=== PATIENT | female | born 1970 | race Caucasian/White ===

== ENCOUNTER 2021-09-16 21:15 | Observation (INO) | payer OTHER, MEDICAID, SELFPAY ==
[2021-09-16 21:27] VITALS: PULSE 83; O2SAT 100
[2021-09-16 21:29] VITALS: BP 181/80; PULSE 80; RESP 20; TEMP 36.4; O2SAT 100; BMI 28.0
[2021-09-16 21:30] VITALS: BP 181/91
--- NOTE | 2021-09-16 21:49 | DI.RAD.S_ITS ---
PROCEDURE: XR CHEST 2V INDICATIONS: upper abdominal pain TECHNIQUE: 2 views of the chest were acquired. COMPARISON: [facility], CT, CT ABDOMEN PELVIS W CON, 09/16/2021, 22:25. FINDINGS: Surgical changes and devices: None. Lungs and pleura: There are linear opacities in the lung bases consistent with atelectasis. No pleural effusions or pneumothorax. Mediastinum: Mediastinal contours are normal. Heart size is normal. Bones and chest wall: No suspicious bony abnormalities. Soft tissues appear unremarkable. IMPRESSION: 1. Bibasilar atelectasis in the lung bases without definite acute cardiopulmonary disease. Dictated by: Benny Ortiz M.D. on 09/16/2021 at 23:18 Approved by: Benny Ortiz M.D. on 09/16/2021 at 23:19
--- NOTE | 2021-09-16 21:49 | DI.CT.S_ITS ---
PROCEDURE: CT ABDOMEN PELVIS W CON INDICATIONS: acute upper abdominal pain TECHNIQUE: After the administration of IV contrast, axial sections were acquired from the lung bases to the pubic symphysis. Coronal and sagittal reformats were performed. For radiation dose reduction, the following was used: automated exposure control, adjustment of mA and/or kV according to patient size. COMPARISON: None. FINDINGS: Image quality: Excellent. Lung bases: There is linear scarring and atelectasis in the lung bases. Heart: Heart is normal in size. There is a small hiatal hernia. ABDOMEN: Liver: No mass lesion. Gallbladder: Surgically absent. Biliary ducts: No biliary ductal dilatation. Pancreas: Unremarkable. Spleen: Normal in size. Adrenal Glands: No adrenal nodules. Kidneys and Ureters: No hydronephrosis. Stomach and Bowel: There are postsurgical changes demonstrated in the stomach consistent with prior gastric bypass with gastrojejunostomy. Multiple distended loops of small bowel are demonstrated, measuring up to 3.6 cm with associated air-fluid levels and segments of small bowel fecalization. These include distention of the afferent loop extending distal to the jejunal-jejunal anastomosis. There is also segmental distention of a small bowel loop more distal to the anastomosis. No single transition point is identified but there is twisting of the small bowel mesentery in the left upper quadrant with a few transition points. The constellation of findings are suggestive of a moderate small-bowel obstruction likely secondary to an internal hernia. The distal small bowel is nondistended. No evidence of appendicitis. The colon is normal in caliber. There is colonic diverticulosis. Peritoneum: No abnormal intraperitoneal fluid. No free air. Ventral Wall: No hernia. Abdominal Nodes: No retroperitoneal or mesenteric adenopathy by size criteria. Vessels: Aorta and inferior vena cava are normal in size. PELVIS: Pelvic Organs: Unremarkable. Bladder: Unremarkable. Pelvic Nodes: No enlarged lymph nodes. Miscellaneous: No inguinal hernias are seen. Bones: Visualized osseous structures demonstrate no suspicious focal lesions. IMPRESSION: 1. Findings consistent with a moderate small-bowel obstruction likely secondary to an internal hernia in the left upper quadrant. Findings discussed with Dr. Hussein on 09/16/2021 at 11:30 p.m.. Dictated by: Benny Ortiz M.D. on 09/16/2021 at 23:20 Approved by: Benny Ortiz M.D. on 09/16/2021 at 23:36
[2021-09-16] MEDS: ONDANSETRON 4 MG/2 ML INJ IV (21:54)
[2021-09-16] MEDS: HYDROMORPHONE 1 MG INJ IV (21:54)
[2021-09-16] MEDS: SODIUM CHLORIDE 0.9% 1,000 ML 1000 ML IV (21:54)
[2021-09-16 22:05] LABS: Add Manual Diff / Slide Review NO; Basophils Absolute Auto 0 /uL (0-100); Basophils Percent Auto 0.8 % (0-2); Eosinophils Absolute Auto 100 /uL (0-450); Eosinophils Percent Auto 1.4 % (2-4); Hematocrit 39.4 % (36-46); Hemoglobin 12.7 g/dL (12.0-16.0); Lymphocytes Absolute Auto 1800 /uL (1100-4500); Lymphocytes Percent Auto 29.8 % (25-40); Mean Corpuscular HGB Conc 32.3 % (30-36); Mean Corpuscular Hemoglobin 24.3 PG (26-34); Mean Corpuscular Volume 75.2 fL (80-100); Monocytes Absolute Auto 400 /uL (0-900); Monocytes Percent Auto 6.4 % (3-14); Neutrophils Absolute Auto 3800 /uL (1500-7000); Neutrophils Percent Auto 61.6 % (50-75); Platelet Count 331 X10^3/uL (150-400); Red Blood Cell Count 5.23 X10^6/uL (4.0-5.2); Red Cell Distribution Width 15.3 % (11.6-14.8); White Blood Cell Count 6.1 X10^3/uL (4.5-11.0)
[2021-09-16 22:10] LABS: Alanine Aminotransferase 21 IU/L (<35); Albumin 4.9 g/dL (3.5-5.0); Albumin Globulin Ratio 1.4 (1.0-2.8); Alkaline Phosphatase 102 U/L (38-126); Aspartate Aminotransferase 32 IU/L (14-36); BUN Creatinine Ratio 21.7 (6-22); Bilirubin Total 0.3 mg/dL (0.2-1.3); Blood Urea Nitrogen 15 mg/dL (7-17); Calcium 9.7 mg/dL (8.4-10.2); Carbon Dioxide 25 mmol/L (22-32); Chloride 105 mmol/L (98-107); Estimated Glomerular Filt Rate > 60 mL/min (>60); Globulin 3.5 g/dL (1.7-4.1); Glucose 164 mg/dL (70-100); HEMOLYSIS < 15 (0-50); Magnesium 2.1 mg/dL (1.6-2.3); Potassium 4.1 mmol/L (3.4-5.1); Sodium 142 mmol/L (137-145); Total Protein 8.4 g/dL (6.3-8.2)
--- NOTE | 2021-09-16 22:23 | PC.NURSE ---
Pt reports she had pain relief initially from the dilaudid, but now the pain is coming back and she isn't able to lay still.
[2021-09-16] MEDS: HYDROMORPHONE 0.5 MG INJ IV (22:25)
[2021-09-16 22:30] LABS: Lipase 4102 U/L (23-300)
[2021-09-16 22:52] VITALS: BP 124/60; PULSE 70; O2SAT 97
[2021-09-16 23:00] VITALS: PULSE 64; O2SAT 96
[2021-09-16 23:18] LABS: COVID19 -Nasal RAPID Negative (Negative)
--- NOTE | 2021-09-16 23:32 | ED_ITS ---
HPI - General Adult General Chief complaint: Abdominal Pain Stated complaint: severe stomach pain Time Seen by Provider: 09/16/21 21:47 Source: patient Mode of arrival: Ambulatory History of Present Illness HPI narrative: 51-year-old woman moving to [place] from [facility] with the long history of GI issues. She has had 7 stomach surgeries for reflux related issues and hiatal hernia. She has had a cholecystectomy that had a complication including some type of stomach leak above the diaphragm that required thoracic surgery in [facility]. She has had continued mid abdominal/thoracic pain that radiates through to her back for the last 6 months and is scheduled for upper endoscopy at the end of September. She has been doing quite a bit of physical activity with moving and this afternoon began having acute severe unrelenting abdominal pain worse than she has experienced previously. She feels nauseated however is unable to vomit after her hiatal hernia surgeries. She does not have any fever describes no diarrhea or constipation. She has not recently been ill with fever, cough, chest pain, palpitations. Review of Systems Review of Systems Narrative: Remainder of complete review of systems is otherwise unremarkable except for that included in the HPI. Patient History Medical History (Updated 09/16/21 @ 23:54 by Haydee Hussein MD) Hiatal hernia Surgical History (Updated 09/16/21 @ 23:35 by Haydee Hussein MD) History of cholecystectomy Social History Smoking Status: Never smoker Smoking Status: Never smoker alcohol intake frequency: 0-2 drinks per day Substance Use Type: does not use Exam Initial Vital Signs Initial Vital Signs: Vital Signs Pulse Rate 83 09/16/21 21:27 Pulse Oximetry 100 09/16/21 21:27 General: Severe acute abdominal pain. Able to give a complete and coherent history. Well-nourished well-developed HEENT: Moist mucous membranes, normal sclera with reactive pupils, Neck: supple Respiratory: Lungs are clear to auscultation, no wheezing no rales no rhonchi. Full and symmetrical air movement Cardiac: Regular rate and rhythm no murmurs no bruits Abdomen: Distended, significant tenderness in the upper quadrants, mild tenderness in the lower quadrants, hypoactive bowel tones and no rebound or guarding. Skin: Warm and dry, no rashes Neurologic: Grossly neurologically intact with no obvious asymmetries or abnormalities Extremities: No trauma, well perfused Psych: Cooperative, appropriate insight and affect Course Orders Ordered: ED Orders 09/16/21 21:35 Complete Blood Count AUTO DIFF Stat Comprehensive Metabolic Panel Stat Lipase Stat Magnesium Stat 09/16/21 21:49 CT abdomen pelvis w con Stat XR chest 2V Stat 09/16/21 22:55 COVID19 -Nasal RAPID/Pre-Proc Stat Hydromorphone HCl (Hydromorphone 0.5 Mg Inj) 0.5 mg IV Q15MIN PRN PRN Reason: Pain, Last Admin: 09/16/21 22:25 Dose: 0.5 mg Documented By: MYCHAL Sodium Chloride (Normal Saline 0.9%) 1,000 mls @ 125 mls/hr IV CONT ANSHU Ondansetron HCl (Ondansetron 4 Mg/2 Ml Inj) 4 mg IV Q4HR PRN PRN Reason: Nausea And Vomiting Discontinued Medications Hydromorphone HCl (Hydromorphone 1 Mg Inj) 1 mg IV NOW ONE Stop: 09/16/21 21:48 Last Admin: 09/16/21 21:54 Dose: 1 mg Documented By: WILBERT Sodium Chloride (Normal Saline 0.9%) 1,000 mls @ 1,000 mls/hr IV BOLUS ONE Stop: 09/16/21 22:46 Last Admin: 09/16/21 21:54 Dose: 1,000 mls/hr Documented By: WILBERT Ondansetron HCl (Ondansetron 4 Mg/2 Ml Inj) 4 mg IV NOW ONE Stop: 09/16/21 21:48 Last Admin: 09/16/21 21:54 Dose: 4 mg Documented By: WILBERT Vital Signs Vital signs: Vital Signs - 8 hr 09/16/21 21:29 09/16/21 21:27 09/16/21 21:30 Temperature 97.5 F L Pulse Rate 80 83 Respiratory Rate 20 Blood Pressure 181/80 H 181/91 H Pulse Oximetry 100 100 Oxygen Delivery Method Room Air 09/16/21 22:52 09/16/21 22:52 09/16/21 23:00 Temperature Pulse Rate 70 64 Respiratory Rate Blood Pressure 124/60 Pulse Oximetry 97 96 Oxygen Delivery Method Medical Decision Making Lab Data Result diagrams: 09/16/21 21:35 09/16/21 21:35 Labs: Lab Results 09/16/21 09/16/21 09/16/21 Range/Units 21:35 21:35 22:55 WBC 6.1 (4.5-11.0) X10^3/uL RBC 5.23 H (4.0-5.2) X10^6/uL Hgb 12.7 (12.0-16.0) g/dL Hct 39.4 (36-46) % MCV 75.2 L (80-100) fL MCH 24.3 L (26-34) PG MCHC 32.3 (30-36) % RDW 15.3 H (11.6-14.8) % Plt Count 331 (150-400) X10^3/uL Neut % (Auto) 61.6 (50-75) % Lymph % (Auto) 29.8 (25-40) % [place] % (Auto) 6.4 (3-14) % Eos % (Auto) 1.4 L (2-4) % Baso % (Auto) 0.8 (0-2) % Neut # (Auto) 3800 (2815-0718) /uL Lymph # (Auto) 1800 (3615-9677) /uL [place] # (Auto) 400 (0-900) /uL Eos # (Auto) 100 (0-450) /uL Baso # (Auto) 0 (0-100) /uL Sodium 142 (137-145) mmol/L Potassium 4.1 (3.4-5.1) mmol/L Chloride 105 (98-107) mmol/L Carbon Dioxide 25 (22-32) mmol/L BUN 15 (7-17) mg/dL Creatinine 0.69 (0.52-1.04) mg/dL Estimated GFR > 60 (>60) mL/min BUN/Creatinine Ratio 21.7 (6-22) Glucose 164 H (70-100) mg/dL Calcium 9.7 (8.4-10.2) mg/dL Magnesium 2.1 (1.6-2.3) mg/dL Total Bilirubin 0.3 (0.2-1.3) mg/dL AST 32 (14-36) IU/L ALT 21 (<35) IU/L Alkaline Phosphatase 102 (38-126) U/L Total Protein 8.4 H (6.3-8.2) g/dL Albumin 4.9 (3.5-5.0) g/dL Globulin 3.5 (1.7-4.1) g/dL Albumin/Globulin Ratio 1.4 (1.0-2.8) Lipase 4102 H (23-300) U/L SARS-CoV-2 (PCR) Negative (Negative) Urine Dip Bedside Urine Glucose Negative Bedside Urine Bilirubin - Negative Bedside Urine Ketone - Negative Urine Specific [place] 1.015 Bedside Urine Occult Blood - Negative Bedside Urine pH 6.0 Bedside Urine Protein - Negative Bedside Urine Urobilinogen - Negative Bedside Urine Nitrite - Negative Bedside Urine Leukocytes - Negative Esterase Point of care testing: Urine Dip Bedside Urine Glucose Negative Bedside Urine Bilirubin - Negative Bedside Urine Ketone - Negative Urine Specific [place] 1.015 Bedside Urine Occult Blood - Negative Bedside Urine pH 6.0 Bedside Urine Protein - Negative Bedside Urine Urobilinogen - Negative Bedside Urine Nitrite - Negative Bedside Urine Leukocytes - Negative Esterase Imaging Data Chest x-ray: Radiologist's Impression: FINDINGS:? ? Surgical changes and devices:? None.? ? Lungs and pleura:? There are linear opacities in the lung bases consistent with atelectasis.? No pleural effusions or pneumothorax.? ? Mediastinum:? Mediastinal contours are normal.? Heart size is normal.? ? Bones and chest wall:? No suspicious bony abnormalities.? Soft tissues appear unremarkable.? ? IMPRESSION:? ? 1. Bibasilar atelectasis in the lung bases without definite acute cardiopulmonary disease. ? ? Dictated by: Benny Ortiz M.D. on 09/16/2021 at 23:18 ? ? CT scan - abdomen/pelvis: Radiologist's Impression: FINDINGS:? Image quality:? Excellent.? ? Lung bases:? There is linear scarring and atelectasis in the lung bases.? ? Heart:? Heart is normal in size.? There is a small hiatal hernia. ? ? ABDOMEN: Liver:? No mass lesion. Gallbladder:? Surgically absent. Biliary ducts:? No biliary ductal dilatation.? ? Pancreas:? Unremarkable.? ? Spleen:? Normal in size.? ? Adrenal Glands:? No adrenal nodules.? ? Kidneys and Ureters:? No hydronephrosis.? ? ? Stomach and Bowel:? There are postsurgical changes demonstrated in the stomach consistent with prior gastric bypass with gastrojejunostomy.? Multiple distended loops of small bowel are demonstrated, measuring up to 3.6 cm with associated air-fluid levels and segments of small bowel fecalization.? These include distention of the afferent loop extending distal to the jejunal-jejunal anastomosis.? There is also segmental distention of a small bowel loop more distal to the anastomosis.? No single transition point is identified but there is twisting of the small bowel mesentery in the left upper quadrant with a few transition points.? The constellation of findings are suggestive of a moderate small-bowel obstruction likely secondary to an internal hernia.? The distal sm all bowel is nondistended.? No evidence of appendicitis.? The colon is normal in caliber.? There is colonic diverticulosis. Peritoneum:? No abnormal intraperitoneal fluid.? No free air.? ? Ventral Wall: ? No hernia.? Abdominal Nodes:? No retroperitoneal or mesenteric adenopathy by size criteria.? Vessels:? Aorta and inferior vena cava are normal in size.? ? PELVIS: Pelvic Organs:? Unremarkable.? ? Bladder:? Unremarkable.? ? Pelvic Nodes: No enlarged lymph nodes.? Miscellaneous: No inguinal hernias are seen. ? ? ? Bones:? Visualized osseous structures demonstrate no suspicious focal lesions. ? IMPRESSION:? ? 1. Findings consistent with a moderate small-bowel obstruction likely secondary to an internal hernia in the left upper quadrant. ? Findings discussed with Dr. Hussein on 09/16/2021 at 11:30 p.m..? ? ? Dictated by: Benny Ortiz M.D. on 09/16/2021 at 23:20 ? ? [facility] Narrative Medical decision making narrative: 51-year-old woman with a complicated abdominal surgical history with gastric bypass, diaphragmatic hernias, complications from cholecystectomy with continued upper abdominal pain for the last 6 months after most recent surgery in March. Comes in with acute onset severe upper abdominal pain with distention. The CT scan suggests acute small-bowel obstruction with findings consistent with an internal hernia. Care is reviewed with Dr. Purdy, general surgeon. Patient will be admitted to his service with anticipation of surgical intervention tomorrow. At this point she is hemodynamically stable and pain is controlled. Plan is reviewed with patient, questions are answered and she will be admitted to the floor. Discharge Plan Departure Patient Disposition: Admitted As Inpatient Clinical Impression: Small bowel obstruction, Obstructed internal hernia
[2021-09-17 00:07] VITALS: BMI 28.0
[2021-09-17] MEDS: SODIUM CHLORIDE 0.9% 1,000 ML 125 ML IV ×2 (00:32→09:22)
[2021-09-17] MEDS: PRAMIPEXOLE 1 MG TABLET PO (00:32)
[2021-09-17] MEDS: ONDANSETRON 4 MG/2 ML INJ IV ×2 (01:16→07:41)
[2021-09-17 01:24] VITALS: BP 134/82; PULSE 68; RESP 18; TEMP 36.4; O2SAT 98
[2021-09-17 07:53] VITALS: BP 139/71; PULSE 69; RESP 16; TEMP 36.8; O2SAT 100
--- NOTE | 2021-09-17 09:16 | CM.DANOTE ---
DCP: Case received, EMR reviewed and met with patient. Spouse was also at bedside. Introduced self and role. Was able to obtain information regarding patient's baseline activity status prior to admission. DCP assessment completed with information currently available. Patient is a 51 year old female who admitted early this morning to the care of the hospitalist team. PCP: Provider in [place], no longer in practice. Payer: confirmed: [facility]. Patient came to the hospital via private vehicle secondary to increased abdominal pain. According to notes, patient has history of past abdominal surgeries, including a cholecystectomy, and had required thoracic surgery in March. Patient holds current diagnosis of acute small bowel obstruction with findings consistent with internal hernia. Patient will be having surgery consult. Met with patient in her room, spouse was in room as well. 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 Patient is independent at her baseline, and they have children. P: DCP to continue to follow. Patient will be having surgery consult today. Renetta Dillon RN/Photographer Scientific Discharge Planning/Care Management CM Discharge Assessment Start: 09/17/21 09:15 Freq: Status: Active Protocol: Document 09/17/21 09:15 (Rec: 09/17/21 09:15 [id number]) Discharge Planning Assessment Assigned Supervisor [employer] Renetta Dillon RN/Photographer Scientific Advance Directives? No History Provided By Patient,Medical Record Household Members spouse Type of transporation used prior to Drives own vehicle admit Independent with ADL's Yes Is patient alert and oriented? Yes Caregiver for Another No Barriers to Discharge No Discharge Plan Home Transportation Arrangement Spouse Whiteboard Updated in Patient Room with Yes name and ext. # of Supervisor [employer] Review Status In Process Next Review Type Continued Stay Review
[2021-09-17 11:26] VITALS: BP 117/74; PULSE 58; RESP 16; TEMP 36; O2SAT 100
--- NOTE | 2021-09-17 14:26 | PM.HP.1 ---
History of Present Illness History of Present Illness Date Patient Seen: 09/17/21 Time Patient Seen: 14:26 Chief complaint: severe stomach pain Narrative: 51-year-old woman with an extensive past surgical history involving Arnie fundoplication, hiatal hernia repair, sleeve gastrectomy and gastric bypass surgery who presents with several hours of severe upper abdominal pain. She has no prior history of bowel obstructions. A CT scan was performed overnight which showed dilated loops of bowel without a clear transition point. The CT scan was suggestive of a small-bowel obstruction. Shortly after arriving to the floor she felt relief. A Gastrografin challenge was administered this morning with quick transit of contrast to the rectum. She has been able to tolerate some clear liquids although she does not much of an appetite. She has been passing gas. Patient History Medical History (Updated 09/16/21 @ 23:54 by Haydee Hussein MD) Hiatal hernia Surgical History (Updated 09/16/21 @ 23:35 by Haydee Hussein MD) History of cholecystectomy Family & Social History Social History: household members spouse Safety & Behavioral: Feels Safe in Current Yes Environment Tobacco & Substance use: Smoking Status Never smoker alcohol intake frequency 0-2 drinks per day Substance Use Type does not use Meds Home Medications and Allergies Home Medications Medication Instructions Recorded Confirmed Type fluoxetine 40 mg capsule 40 mg PO DAILY 09/17/21 09/17/21 History hydrochlorothiazide 25 mg tablet 25 mg PO DAILY 09/17/21 09/17/21 History omeprazole 40 mg capsule,delayed 1 mg PO DAILY 09/17/21 09/17/21 History release pramipexole 0.5 mg tablet 1 mg PO DAILY 09/17/21 09/17/21 History Allergies Allergy/AdvReac Type Severity Reaction Status Date / Time No Known Drug Allergies Allergy Verified 09/17/21 00:30 Exam Vital Signs (past 8 hours): - 09/17/21 07:53 09/17/21 11:26 Temperature 98.3 F 96.8 F L Pulse Rate 69 58 L Respiratory Rate 16 16 Blood Pressure 139/71 117/74 Pulse Oximetry 100 100 Oxygen Delivery Method Room Air Narrative Exam Narrative: No acute distress Abdomen is soft, nontender Objective Labs Result Diagrams: 09/16/21 21:35 09/16/21 21:35 Labs: Laboratory Results - last 24 hr 09/16/21 09/16/21 09/16/21 21:35 21:35 22:55 WBC 6.1 RBC 5.23 H Hgb 12.7 Hct 39.4 MCV 75.2 L MCH 24.3 L MCHC 32.3 RDW 15.3 H Plt Count 331 Neut % (Auto) 61.6 Lymph % (Auto) 29.8 [place] % (Auto) 6.4 Eos % (Auto) 1.4 L Baso % (Auto) 0.8 Neut # (Auto) 3800 Lymph # (Auto) 1800 [place] # (Auto) 400 Eos # (Auto) 100 Baso # (Auto) 0 Sodium 142 Potassium 4.1 Chloride 105 Carbon Dioxide 25 BUN 15 Creatinine 0.69 Estimated GFR > 60 BUN/Creatinine Ratio 21.7 Glucose 164 H Calcium 9.7 Magnesium 2.1 Total Bilirubin 0.3 AST 32 ALT 21 Alkaline Phosphatase 102 Total Protein 8.4 H Albumin 4.9 Globulin 3.5 Albumin/Globulin Ratio 1.4 Lipase 4102 H SARS-CoV-2 (PCR) Negative Assessment & Plan Assessment and plan (1) Small bowel obstruction: Status: Acute Plan If she did in fact have a small-bowel obstruction it has now resolved. I suspect more likely she had an air bubble in her upper GI tract causing the brief episode of severe pain. Okay to advance diet to regular and if she tolerates well she can go home tonight. Time Spent With Patient Critical Care time: I spent a total of [] minutes of critical care time on this patient's care today; this time is exclusive of procedural time.
[2021-09-17] MEDS: ACETAMINOPHEN 325 MG TABLET 650 MG PO (15:12)
--- NOTE | 2021-09-17 16:22 | PC.NURSE ---
patient had some jeremy menjivar for late lunch. she tolerated general diet. no n/v. passing gas. dc instructions given. IV removed
== END 2021-09-17 16:28 | disposition home or self-care (01) ==
LOC: ED 23:54 → AC 09-17 14:29
PROVIDERS: Admitting Provider Surgery; Emergency Provider Emergency Medicine; Referring Provider Surgery; Visit Provider Surgery
DX: R10.9 Unspecified abdominal pain (principal); Z98.84 Bariatric surgery status
CPT/HCPCS: 36415; 71046; 74177; 80053; 81003; 83690; 83735; 85025; 87635; 96361; 96374; 96375; 96376; 99219; 99284; C9803; G0378; J1170; J2405

== ENCOUNTER 2021-11-15 21:20 | Emergency (ER) | payer OTHER, MEDICAID, SELFPAY ==
[2021-11-15 21:51] VITALS: BP 135/72; PULSE 79; RESP 22; TEMP 37; O2SAT 99; BMI 28.0
--- NOTE | 2021-11-15 21:59 | DI.RAD.S_ITS ---
PROCEDURE: XR ACUTE ABDOMEN SERIES INDICATIONS: abd pain worsening after fall TECHNIQUE: One view chest and two views of the abdomen were acquired. COMPARISON: [facility], CT, CT ABDOMEN PELVIS W CON, 09/16/2021, 22:25. [facility], CR, XR CHEST 2V, 09/16/2021, 22:26. FINDINGS: Surgical changes and devices: Surgical clips are redemonstrated within the bilateral upper abdomen and right hemipelvis. Chest: Lungs are clear. Heart size is normal. Mild blunting of the bilateral costophrenic angles appears similar to the prior study consistent with pleural thickening. No definite pleural effusions. No pneumoperitoneum. Abdomen: Bowel gas pattern is normal. No suspicious calcifications. Bones: No suspicious bony lesions. IMPRESSION: 1. No acute intra-abdominal radiographic abnormality. Dictated by: Benny Ortiz M.D. on 11/15/2021 at 23:36 Approved by: Benny Ortiz M.D. on 11/15/2021 at 23:38
[2021-11-15 22:22] LABS: Add Manual Diff / Slide Review NO; Basophils Absolute Auto 100 /uL (0-100); Basophils Percent Auto 0.9 % (0-2); Eosinophils Absolute Auto 100 /uL (0-450); Eosinophils Percent Auto 1.1 % (2-4); Hematocrit 33.4 % (36-46); Hemoglobin 10.9 g/dL (12.0-16.0); Lymphocytes Absolute Auto 1500 /uL (1100-4500); Lymphocytes Percent Auto 23.7 % (25-40); Mean Corpuscular HGB Conc 32.7 % (30-36); Mean Corpuscular Hemoglobin 23.9 PG (26-34); Monocytes Absolute Auto 400 /uL (0-900); Monocytes Percent Auto 7.1 % (3-14); Neutrophils Absolute Auto 4200 /uL (1500-7000); Neutrophils Percent Auto 67.2 % (50-75); Platelet Count 363 X10^3/uL (150-400); Red Blood Cell Count 4.58 X10^6/uL (4.0-5.2); Red Cell Distribution Width 15.4 % (11.6-14.8); White Blood Cell Count 6.3 X10^3/uL (4.5-11.0)
[2021-11-15 22:34] LABS: Alanine Aminotransferase 14 IU/L (<35); Albumin 4.1 g/dL (3.5-5.0); Albumin Globulin Ratio 1.3 (1.0-2.8); Alkaline Phosphatase 99 U/L (38-126); Aspartate Aminotransferase 21 IU/L (14-36); BUN Creatinine Ratio 29.2 (6-22); Bilirubin Total 0.2 mg/dL (0.2-1.3); Blood Urea Nitrogen 19 mg/dL (7-17); Calcium 8.4 mg/dL (8.4-10.2); Carbon Dioxide 24 mmol/L (22-32); Chloride 109 mmol/L (98-107); Estimated Glomerular Filt Rate > 60 mL/min (>60); Globulin 3.2 g/dL (1.7-4.1); Glucose 83 mg/dL (70-100); HEMOLYSIS < 15 (0-50); Lipase 41 U/L (23-300); Potassium 3.6 mmol/L (3.4-5.1); Sodium 140 mmol/L (137-145); Total Protein 7.3 g/dL (6.3-8.2)
--- NOTE | 2021-11-16 00:08 | ED_ITS ---
HPI - Abdominal Pain General Chief Complaint: Abdominal Pain Stated Complaint: 2 falls s/p surgery, lt abd pain Time Seen by Provider: 11/16/21 00:17 Source: patient Mode of arrival: Ambulatory History of Present Illness HPI narrative: 51-year-old female nonsmoker with history of extensive abdominal surgeries presents with a chief complaint of abdominal pain for the past 2 weeks or so. She is had nausea but no vomiting and generalized abdominal pain that she describes as not severe but she is very concerned that something must be going on. She had been seen here a few months ago with a chief complaint of severe abdominal pain and was admitted for small-bowel obstruction but had resolved prior to requiring any surgical intervention. She is had multiple abdominal surgeries including Arnie fundoplication and is scheduled for what she describes as another surgical intervention for an internal hernia in a few weeks. She states that about 2 weeks ago she was working in the [facility] [employer] when she tripped and fell onto a garbage can with sufficient force to snap a rake that she had been using. Since then she is had the abdominal pain as described above without obvious provocation or palliation nor any radiation. She is had no change in bowel habits nor fever or chills. Related Data Home Medications Medication Instructions Recorded Confirmed fluoxetine 40 mg capsule 40 mg PO DAILY 09/17/21 09/17/21 hydrochlorothiazide 25 mg tablet 25 mg PO DAILY 09/17/21 09/17/21 omeprazole 40 mg capsule,delayed 1 mg PO DAILY 09/17/21 09/17/21 release pramipexole 0.5 mg tablet 1 mg PO DAILY 09/17/21 09/17/21 Allergies Allergy/AdvReac Type Severity Reaction Status Date / Time No Known Drug Allergies Allergy Verified 09/17/21 00:30 Review of Systems Review of Systems Narrative: GENERAL: Denies chills, fatigue, malaise, fever, sweats. HEENT: Denies sinus pain, ear pain, sore throat, difficulty swallowing, dizziness. RESPIRATORY: Denies dyspnea, cough, wheezing, hemoptysis, sputum. CARDIOVASCULAR: Denies chest pain, palpitations, orthopnea, edema, GASTROINTESTINAL: See HPI : Denies dysuria, frequency, incontinence, hematuria, urinary retention. MUSCULOSKELETAL: denies weakness, joint pain, or bony pain SKIN: Denies rash, skin lesions, or other NEUROLOGIC: Denies weakness, headache, numbness, change in speech, confusion, seizures, incoordination. PSYCHIATRIC: No concerning psychosocial issues. 12 point review of systems is negative except for those stated above Patient History Medical History Hiatal hernia Surgical History History of cholecystectomy Social History household members: spouse Smoking Status: Never smoker Smoking Status: Never smoker alcohol intake frequency: 0-2 drinks per day Substance Use Type: does not use Exam Narrative Exam Narrative: GENERAL: [51] year old patient appears stated age. Well-developed patient, in mild distress. HEAD: Atraumatic. Normocephalic. EYES: Pupils equal round and reactive. Extraocular motions intact. No scleral icterus. No injection or drainage. ENT: Nose without bleeding, purulent drainage. Throat without erythema, tons illar hypertrophy or exudate. Airway patent. NECK: Trachea midline. Non tender CARDIOVASCULAR: Regular rate and rhythm without murmurs, gallops, or rubs. RESPIRATORY: Clear to auscultation. Breath sounds equal bilaterally. No wheezes, rales, or rhonchi. GASTROINTESTINAL: Abdomen soft, minimal left sided abdominal pain with minimal areas of dark purple bruising, multiple scars from prior surgeries noted, nondistended. Bowel sounds present in all 4 quadrants EXTREMITIES: No edema or joint tenderness. BACK: Nontender without deformity or crepitance. No flank tenderness. NEURO: AOx3. SKIN: No rash or erythema of visible areas Initial Vital Signs Initial Vital Signs: Vital Signs Temperature 98.6 F 11/15/21 21:51 Pulse Rate 79 11/15/21 21:51 Respiratory Rate 22 11/15/21 21:51 Blood Pressure 135/72 11/15/21 21:51 Pulse Oximetry 99 11/15/21 21:51 Oxygen Delivery Method 11/15/21 21:51 Course Orders Ordered: ED Orders 11/15/21 21:59 XR acute abdomen series Stat 11/15/21 22:06 Complete Blood Count AUTO DIFF Stat Comprehensive Metabolic Panel Stat Lipase Stat 11/16/21 00:16 CT abdomen pelvis w con Stat Discontinued Medications Acetaminophen (Acetaminophen 325 Mg Tablet) 975 mg PO NOW ONE Stop: 11/16/21 00:42 Last Admin: 11/16/21 00:46 Dose: 975 mg Documented By: MYCHAL Lidocaine (Lidocaine Patch 1 Each Adh..Patch) 1 each TOP NOW ONE Stop: 11/16/21 00:41 Last Admin: 11/16/21 00:46 Dose: 1 each Documented By: MYCHAL Vital Signs Vital signs: Vital Signs - 8 hr 11/15/21 21:51 Temperature 98.6 F Pulse Rate 79 Respiratory Rate 22 Blood Pressure 135/72 Pulse Oximetry 99 Oxygen Delivery Method Room Air MDM - Abdominal Pain Lab Data Result diagrams: 11/15/21 22:06 11/15/21 22:06 Labs: Lab Results 11/15/21 11/15/21 Range/Units 22:06 22:06 WBC 6.3 (4.5-11.0) X10^3/uL RBC 4.58 (4.0-5.2) X10^6/uL Hgb 10.9 L (12.0-16.0) g/dL Hct 33.4 L (36-46) % MCV 73.0 L (80-100) fL MCH 23.9 L (26-34) PG MCHC 32.7 (30-36) % RDW 15.4 H (11.6-14.8) % Plt Count 363 (150-400) X10^3/uL Neut % (Auto) 67.2 (50-75) % Lymph % (Auto) 23.7 L (25-40) % Childress % (Auto) 7.1 (3-14) % Eos % (Auto) 1.1 L (2-4) % Baso % (Auto) 0.9 (0-2) % Neut # (Auto) 4200 (9034-2662) /uL Lymph # (Auto) 1500 (0292-8489) /uL Childress # (Auto) 400 (0-900) /uL Eos # (Auto) 100 (0-450) /uL Baso # (Auto) 100 (0-100) /uL Sodium 140 (137-145) mmol/L Potassium 3.6 (3.4-5.1) mmol/L Chloride 109 H (98-107) mmol/L Carbon Dioxide 24 (22-32) mmol/L BUN 19 H (7-17) mg/dL Creatinine 0.65 (0.52-1.04) mg/dL Estimated GFR > 60 (>60) mL/min BUN/Creatinine Ratio 29.2 H (6-22) Glucose 83 (70-100) mg/dL Calcium 8.4 (8.4-10.2) mg/dL Total Bilirubin 0.2 (0.2-1.3) mg/dL AST 21 (14-36) IU/L ALT 14 (<35) IU/L Alkaline Phosphatase 99 (38-126) U/L Total Protein 7.3 (6.3-8.2) g/dL Albumin 4.1 (3.5-5.0) g/dL Globulin 3.2 (1.7-4.1) g/dL Albumin/Globulin Ratio 1.3 (1.0-2.8) Lipase 41 (23-300) U/L Imaging Data Abdominal x-ray: Radiologist's Impression: [address] [address] XRay Report Signed Patient: Erica Zhang MR#: [id number] : 1970 Acct:[id number] Age/Sex: 51 / F Date of Service: 11/15/21 Loc: ED Accession Number: [id number] ?? Procedure: XR acute abdomen series Ordering Provider: Lincoln Billings D.O. PROCEDURE:? XR ACUTE ABDOMEN SERIES ? INDICATIONS:? abd pain worsening after fall ? TECHNIQUE:? One view chest and two views of the abdomen were acquired.? ? COMPARISON:? [facility], CT, CT ABDOMEN PELVIS W CON, 09/16/2021, 22:25.? [facility], CR, XR CHEST 2V, 09/16/2021, 22:26. ? FINDINGS:? ? Surgical changes and devices:? Surgical clips are redemonstrated within the bilateral upper abdomen and right hemipelvis. ? Chest:? Lungs are clear.? Heart size is normal.? Mild blunting of the bilateral costophrenic angles appears similar to the prior study consistent with pleural thickening.? No definite pleural effusions.? No pneumoperitoneum.? ? Abdomen:? Bowel gas pattern is normal.? No suspicious calcifications.? ? Bones:? No suspicious bony lesions.? ? IMPRESSION:? ? 1. No acute intra-abdominal radiographic abnormality.? ? Dictated by: Benny Ortiz M.D. on 11/15/2021 at 23:36 ? ? Approved by: Benny Ortiz M.D. on 11/15/2021 at 23:38 ? CT scan - abdomen/pelvis: Radiologist's Impression: [address] [address] [address] Scan Report Signed Patient: Erica Zhang MR#: [id number] : 1970 Acct:[id number] Age/Sex: 51 / F Date of Service: 11/16/21 Loc: ED Accession Number: [id number] ?? Procedure: CT abdomen pelvis w con Ordering Provider: Lincoln Billings D.O. PROCEDURE:? CT ABDOMEN PELVIS W CON ? INDICATIONS:? abdominal pain, two falls, multiple surgeries ? TECHNIQUE:? After the administration of IV contrast, axial sections were acquired from the lung bases to the pubic symphysis.? Coronal and sagittal reformats were performed.? For radiation dose reduction, the following was used:? automated exposure control, adjustment of mA and/or kV according to patient size. ? COMPARISON:? [facility], CT, CT ABDOMEN PELVIS W CON, 09/16/2021, 22:25. ? FINDINGS:? Image quality:? Excellent.? ? Lung bases:? There is atelectasis and scarring in the lung bases.? ? Heart:? Heart is normal in size.? There is a small hiatal hernia ? ? ABDOMEN: Liver:? No mass lesion. Gallbladder:? Within normal limits without calcified gallstones.? ? Biliary ducts:? No biliary ductal dilatation.? ? Pancreas:? Unremarkable.? ? Spleen:? The spleen is enlarged, measuring up to 14.6 cm. Adrenal Glands:? No adrenal nodules.? ? Kidneys and Ureters:? No hydronephrosis.? ? ? Stomach and Bowel:? Stomach, small bowel loops, and colon are normal in caliber and wall thickness.? Postsurgical changes are redemonstrated status post gastric bypass.? The appendix is not discretely visualized and likely surgically absent. Peritoneum:? No abnormal intraperitoneal fluid.? No free air.? ? Ventral Wall: ? No hernia.? Abdominal Nodes:? No retroperitoneal or mesenteric adenopathy by size criteria.? Vessels:? Aorta and inferior vena cava are normal in size.? ? PELVIS: Pelvic Organs:? Unremarkable.? ? Bladder:? Unremarkable.? ? Pelvic Nodes: No enlarged lymph nodes.? Miscellaneous: No inguinal hernias are seen. ? ? ? Bones:? Visualized osseous structures demonstrate no suspicious focal lesions. ? IMPRESSION:? ? 1. No definite acute intra-abdominal abnormality.? Specifically, no evidence of bowel obstruction. ? ? Dictated by: Benny Ortiz M.D. on 11/16/2021 at 0:55 ? ? Approved by: Benny Ortiz M.D. on 11/16/2021 at 1:06? MDM Narrative Medical decision making narrative: Multiple etiologies for patient's symptoms considered include, but not limited to: [Bowel obstruction versus kidney stone versus diverticulitis versus other Patient's symptoms improved over duration of stay with above-stated therapies. History, physical exam, labs, imaging, and response to therapies have been reassuring. Findings and discharge diagnosis discussed with patient/family followed by verbalization of understanding Return precautions discussed with patient/family whom verbalize understanding. Pain has been well controlled and patient is tolerating oral hydration. Discharge Plan Departure Patient Disposition: Home Clinical Impression: Abdominal pain, Abdominal wall contusion Instructions: DI for Abdominal Pain-Adult Activity Restrictions/Additional Instructions: *You have been diagnosed with [abdominal pain and abdominal wall contusion. As we discussed your history and physical exam are very reassuring as are labs and imaging. There is no evidence of any significant intra-abdominal abnormality such as bowel obstruction, problem with prior surgeries, bleeding or other] *What to do: *Please continue to take your regular medications as directed. [ ] New medication prescriptions sent to your pharmacy: [ ] [ ] New medication written as a paper prescription [x ] No new medications given *Please follow up with your primary care provider in 2-3 days, call for an appointment. Let them know you were seen in the Emergency Department and that we ask that you be seen in follow up. We will electronically transmit a record of today's note if your PCP is in our system *If you do not have a primary care provider please contact the [facility] Resource line at [phone]. They will ask some questions about your medical history and help get you set up with a doctor in the community. *Return to Emergency Department if you should have any new, worsening or concerning symptoms, such as [fever greater than 101 F, shaking chills, worsening pain, persistent vomiting or other bothersome symptoms] Prescriptions: No Action fluoxetine 40 mg capsule 40 mg PO DAILY Label Comments: take 1 capsule by mouth once daily omeprazole 40 mg capsule,delayed release(DR/EC) 1 mg PO DAILY Label Comments: take 1 capsule by mouth EVERY MORNING BEFORE BREAKFAST take 1 cap... (REFER TO PRESCRIPTION NOTES). pramipexole 0.5 mg tablet 1 mg PO DAILY Label Comments: Take 1 tablet by mouth nightly. hydrochlorothiazide 25 mg tablet 25 mg PO DAILY Label Comments: take 1 tablet by mouth once daily Referrals: Jose Devries MD [Primary Care Provider] -
--- NOTE | 2021-11-16 00:16 | DI.CT.S_ITS ---
PROCEDURE: CT ABDOMEN PELVIS W CON INDICATIONS: abdominal pain, two falls, multiple surgeries TECHNIQUE: After the administration of IV contrast, axial sections were acquired from the lung bases to the pubic symphysis. Coronal and sagittal reformats were performed. For radiation dose reduction, the following was used: automated exposure control, adjustment of mA and/or kV according to patient size. COMPARISON: [facility], CT, CT ABDOMEN PELVIS W CON, 09/16/2021, 22:25. FINDINGS: Image quality: Excellent. Lung bases: There is atelectasis and scarring in the lung bases. Heart: Heart is normal in size. There is a small hiatal hernia ABDOMEN: Liver: No mass lesion. Gallbladder: Within normal limits without calcified gallstones. Biliary ducts: No biliary ductal dilatation. Pancreas: Unremarkable. Spleen: The spleen is enlarged, measuring up to 14.6 cm. Adrenal Glands: No adrenal nodules. Kidneys and Ureters: No hydronephrosis. Stomach and Bowel: Stomach, small bowel loops, and colon are normal in caliber and wall thickness. Postsurgical changes are redemonstrated status post gastric bypass. The appendix is not discretely visualized and likely surgically absent. Peritoneum: No abnormal intraperitoneal fluid. No free air. Ventral Wall: No hernia. Abdominal Nodes: No retroperitoneal or mesenteric adenopathy by size criteria. Vessels: Aorta and inferior vena cava are normal in size. PELVIS: Pelvic Organs: Unremarkable. Bladder: Unremarkable. Pelvic Nodes: No enlarged lymph nodes. Miscellaneous: No inguinal hernias are seen. Bones: Visualized osseous structures demonstrate no suspicious focal lesions. IMPRESSION: 1. No definite acute intra-abdominal abnormality. Specifically, no evidence of bowel obstruction. Dictated by: Benny Ortiz M.D. on 11/16/2021 at 0:55 Approved by: Benny Ortiz M.D. on 11/16/2021 at 1:06
[2021-11-16] MEDS: LIDOCAINE PATCH 1 EACH ADH..PATCH TOP (00:46)
[2021-11-16] MEDS: ACETAMINOPHEN 325 MG TABLET 975 MG PO (00:46)
[2021-11-16 01:46] VITALS: BP 135/78; PULSE 90; RESP 18; O2SAT 98
== END 2021-11-16 01:47 | disposition home or self-care (01) ==
PROVIDERS: Emergency Provider Emergency Medicine; PCP Family Medicine
DX: S30.1XXA Contusion of abdominal wall, initial encounter (principal); W01.198A Fall on same level from slipping, tripping and stumbling with subsequent striking against other object, initial encounter; Y92.007 Garden or yard of unspecified non-institutional (private) residence as the place of occurrence of the external cause; R10.9 Unspecified abdominal pain
CPT/HCPCS: 74022; 74177; 80053; 83690; 85025; 99283; Q9967

== ENCOUNTER 2022-01-13 19:28 | Emergency (ER) | payer OTHER, MEDICAID, SELFPAY ==
[2022-01-13 19:41] VITALS: BP 117/59; PULSE 78; RESP 18; TEMP 35.9; O2SAT 97
--- NOTE | 2022-01-13 21:07 | ED.NAVMDI ---
HPI - Nausea/Vomiting/Diarrhea General Chief complaint: Nausea/Vomiting/Diarrhea Stated complaint: Gastro surgeon thinks poss C diff Time Seen by Provider: 01/13/22 20:59 Source: patient Mode of arrival: Ambulatory History of Present Illness HPI Narrative: Patient here for 10 lb weight loss since November 22 this year. Has had 20-30 bouts watery diarrhea a day. Has had dry heaving as well. Patient has seen her surgeon at [place]. Had exploratory laparoscopic surgery on November 22 for possible hernia, there was no hernia. Since then has not felt well. Had barium swallow test and CT scan abdomen pelvis yesterday in [place]. We are waiting for the results of those reports. Her surgeon sent her here for evaluation of C diff. Has not been on any antibiotics. Has not had any EGD or colonoscopy in this past month. No foreign travel no sick contacts. Related Data Home Medications Medication Instructions Recorded Confirmed fluoxetine 40 mg capsule 40 mg PO DAILY 09/17/21 09/17/21 hydrochlorothiazide 25 mg tablet 25 mg PO DAILY 09/17/21 09/17/21 omeprazole 40 mg capsule,delayed 1 mg PO DAILY 09/17/21 09/17/21 release pramipexole 0.5 mg tablet 1 mg PO DAILY 09/17/21 09/17/21 Previous Rx's Medication Instructions Recorded potassium chloride 20 mEq 20 meq PO DAILY #10 tabs 01/14/22 tablet,extended release Allergies Allergy/AdvReac Type Severity Reaction Status Date / Time No Known Drug Allergies Allergy Verified 09/17/21 00:30 Review of Systems Review of Systems Narrative: GENERAL: Denies chills, fatigue, malaise, fever, sweats., positive for weight loss HEENT: Denies sinus pain, ear pain, sore throat RESPIRATORY: Denies dyspnea, cough CARDIOVASCULAR: Denies chest pain, palpitations GASTROINTESTINAL: Positive diarrhea and nausea, vomiting, abdominal pain, no hematemesis or bloody stools or black stools : Denies dysuria, frequency, hematuria MUSCULOSKELETAL: denies muscle or bony pain SKIN: Denies rash, skin lesions NEUROLOGIC: Denies weakness, numbness ROS Unobtainable: All systems reviewed & are unremarkable except as noted in HPI and below Patient History Medical History Hiatal hernia Surgical History History of cholecystectomy Social History household members: spouse Smoking Status: Never smoker Smoking Status: Never smoker alcohol intake frequency: 0-2 drinks per day Substance Use Type: does not use Exam Narrative Exam Narrative: GENERAL: in no distress, not toxic not dyspneic HEAD: Normocephalic. EYES: Pupils equal round No scleral icterus. ENT: Mucous membranes moist. NECK: Trachea midline. CARDIOVASCULAR: Regular rate and rhythm without murmurs RESPIRATORY: Clear to auscultation. Breath sounds equal bilaterally. No wheezes, rales, or rhonchi. GASTROINTESTINAL: Abdomen soft, non-tender, bowel sounds present, no peritoneal signs, EXTREMITIES: No gross deformities. NEURO: AOx4. SKIN: Warm and dry PSYCH: Not anxious, is cooperative Initial Vital Signs Initial Vital Signs: Vital Signs Temperature 96.7 F L 01/13/22 19:41 Pulse Rate 78 01/13/22 19:41 Respiratory Rate 18 01/13/22 19:41 Blood Pressure 117/59 L 01/13/22 19:41 Pulse Oximetry 97 01/13/22 19:41 Oxygen Delivery Method 01/13/22 19:41 Course Course Course Narrative: No new issues during course of stay Orders Ordered: ED Orders 01/13/22 21:15 CBC Auto Diff [Complete Blood Count AUTO DIFF] Stat CMP [Comprehensive Metabolic Panel] Stat GI Panel (Film Array) Stat 01/14/22 01:31 Potassium Stat Discontinued Medications Sodium Chloride (Normal Saline 0.9%) 1,000 mls @ 1,000 mls/hr IV BOLUS ONE Stop: 01/13/22 22:05 Last Infusion: 01/14/22 00:00 Dose: 0 mls/hr Documented By: Admin: 01/13/22 21:20 Dose: 1,000 mls/hr Documented By: SB POTASSIUM CHLORIDE IN WATER (Potassium Cl 10 Meq/100 Ml Tabitha) 10 meq in 100 mls @ 100 mls/hr IV Q1H ANSHU Stop: 01/13/22 23:59 Last Infusion: 01/14/22 01:25 Dose: 0 mls/hr Documented By: Admin: 01/14/22 00:05 Dose: 75 mls/hr Documented By: Infusion: 01/14/22 00:00 Dose: 0 mls/hr Documented By: Infusion: 01/13/22 22:38 Dose: 50 mls/hr Documented By: Admin: 01/13/22 22:08 Dose: 100 mls/hr Documented By: LAZ Potassium Chloride (Potassium Chloride 20 Meq/15 Ml Udc) 20 meq PO NOW ONE Stop: 01/13/22 21:59 Last Admin: 01/13/22 22:08 Dose: 20 meq Documented By: LAZ Ropinirole HCl (Ropinirole 1 Mg Tablet) 1.5 mg PO NOW ONE Stop: 01/14/22 00:26 Last Admin: 01/14/22 00:38 Dose: 1.5 mg Documented By: LAZ Reevaluation(s) Reevaluation #1: Reviewed results with patient and . This time there reassuring. Potassium replacement being provided. They do desire discharge home. Not toxic at discharge. Patient feeling much better after IV fluids and potassium replacement. Time: 00:46 Vital Signs Vital signs: Vital Signs - 8 hr 01/13/22 22:15 01/13/22 22:30 01/13/22 23:00 Pulse Rate 69 72 66 Respiratory Rate 14 20 14 Blood Pressure 134/73 134/73 121/65 Pulse Oximetry 100 99 98 Oxygen Delivery Method Room Air Room Air Room Air 01/14/22 00:00 01/14/22 01:30 01/14/22 01:00 Pulse Rate 66 70 64 Respiratory Rate 16 16 16 Blood Pressure 118/63 129/69 131/76 Pulse Oximetry 99 100 98 Oxygen Delivery Method Room Air Room Air Room Air MDM - Nausea/Vomiting/Diarrhea Differential Diagnosis Differential diagnosis: Likely traveler's diarrhea, gastroenteritis, clostridium difficile infection, dehydration and other (Diarrhea/functional diarrhea/hypokalemia) Medical Records Medical records narrative: Fax results of upper GI series as well as CT scan from yesterday at [place] sent to us. They are reassuring results. Lab Data Result diagrams: 01/13/22 21:15 01/14/22 01:55 Labs: Lab Results 01/13/22 01/13/22 01/13/22 Range/Units 21:15 21:15 21:15 WBC 5.9 (4.5-11.0) X10^3/uL RBC 5.61 H (4.0-5.2) X10^6/uL Hgb 13.1 (12.0-16.0) g/dL Hct 39.5 (36-46) % MCV 70.4 L (80-100) fL MCH 23.4 L (26-34) PG MCHC 33.2 (30-36) % RDW 15.9 H (11.6-14.8) % Plt Count 298 (150-400) X10^3/uL Neut % (Auto) 61.0 (50-75) % Lymph % (Auto) 26.7 (25-40) % Arthur % (Auto) 11.1 (3-14) % Eos % (Auto) 0.7 L (2-4) % Baso % (Auto) 0.5 (0-2) % Neut # (Auto) 3600 (4542-7901) /uL Lymph # (Auto) 1600 (6986-7703) /uL Arthur # (Auto) 700 (0-900) /uL Eos # (Auto) 0 (0-450) /uL Baso # (Auto) 0 (0-100) /uL Sodium 140 (137-145) mmol/L Potassium 2.3 L* (3.4-5.1) mmol/L Chloride 94 L (98-107) mmol/L Carbon Dioxide 34 H (22-32) mmol/L BUN 21 H (7-17) mg/dL Creatinine 0.70 (0.52-1.04) mg/dL Estimated GFR > 60 (>60) mL/min BUN/Creatinine Ratio 30.0 H (6-22) Glucose 97 (70-100) mg/dL Calcium 9.1 (8.4-10.2) mg/dL Total Bilirubin 0.4 (0.2-1.3) mg/dL AST 31 (14-36) IU/L ALT 35 H (<35) IU/L Alkaline Phosphatase 140 H (38-126) U/L Total Protein 8.5 H (6.3-8.2) g/dL Albumin 4.7 (3.5-5.0) g/dL Globulin 3.8 (1.7-4.1) g/dL Albumin/Globulin Ratio 1.2 (1.0-2.8) Stl C. cayetanensis PCR Not detected (Not Detect) Stool Rotavirus (PCR) Not detected (Not Detect) Stool Adenovirus (PCR) Not detected (Not Detect) Stool Astrovirus (PCR) Not detected (Not Detect) Stool Cryptosporidium PCR Not detected (Not Detect) Stl E.coli Shiga Tox PCR Not detected (Not Detect) St Sh/Enteroin Ecoli PCR Not detected (Not Detect) Stool E coli O157 PCR Not detected (Not Detect) Stl Enterotoxigenic E PCR Not detected (Not Detect) Stool EPEC (PCR) Not detected (Not Detect) Stl E. histolytica PCR Not detected (Not Detect) Stool Giardia Lamblia PCR Not detected (Not Detect) Stool Sapovirus (PCR) Not detected (Not Detect) Stl P. shigelloides PCR Not detected (Not Detect) St Y.enterocolitica PCR Not detected (Not Detect) Stool Vibrio (PCR) Not detected (Not Detect) Stl Vibrio cholerae PCR Not detected (Not Detect) Stl Enteroaggr Ecoli PCR Not detected (Not Detect) Stl Norovirus GI/GII PCR Not detected (Not Detect) Campylobacter (PCR) Not detected (Not Detect) C. difficile Tox (PCR) Not detected (Not Detect) Salmonella (PCR) Not detected (Not Detect) 01/14/22 Range/Units 01:55 WBC (4.5-11.0) X10^3/uL RBC (4.0-5.2) X10^6/uL Hgb (12.0-16.0) g/dL Hct (36-46) % MCV (80-100) fL MCH (26-34) PG MCHC (30-36) % RDW (11.6-14.8) % Plt Count (150-400) X10^3/uL Neut % (Auto) (50-75) % Lymph % (Auto) (25-40) % Arthur % (Auto) (3-14) % Eos % (Auto) (2-4) % Baso % (Auto) (0-2) % Neut # (Auto) (1573-8368) /uL Lymph # (Auto) (3824-1140) /uL Arthur # (Auto) (0-900) /uL Eos # (Auto) (0-450) /uL Baso # (Auto) (0-100) /uL Sodium (137-145) mmol/L Potassium 2.8 L (3.4-5.1) mmol/L Chloride (98-107) mmol/L Carbon Dioxide (22-32) mmol/L BUN (7-17) mg/dL Creatinine (0.52-1.04) mg/dL Estimated GFR (>60) mL/min BUN/Creatinine Ratio (6-22) Glucose (70-100) mg/dL Calcium (8.4-10.2) mg/dL Total Bilirubin (0.2-1.3) mg/dL AST (14-36) IU/L ALT (<35) IU/L Alkaline Phosphatase (38-126) U/L Total Protein (6.3-8.2) g/dL Albumin (3.5-5.0) g/dL Globulin (1.7-4.1) g/dL Albumin/Globulin Ratio (1.0-2.8) Stl C. cayetanensis PCR (Not Detect) Stool Rotavirus (PCR) (Not Detect) Stool Adenovirus (PCR) (Not Detect) Stool Astrovirus (PCR) (Not Detect) Stool Cryptosporidium PCR (Not Detect) Stl E.coli Shiga Tox PCR (Not Detect) St Sh/Enteroin Ecoli PCR (Not Detect) Stool E coli O157 PCR (Not Detect) Stl Enterotoxigenic E PCR (Not Detect) Stool EPEC (PCR) (Not Detect) Stl E. histolytica PCR (Not Detect) Stool Giardia Lamblia PCR (Not Detect) Stool Sapovirus (PCR) (Not Detect) Stl P. shigelloides PCR (Not Detect) St Y.enterocolitica PCR (Not Detect) Stool Vibrio (PCR) (Not Detect) Stl Vibrio cholerae PCR (Not Detect) Stl Enteroaggr Ecoli PCR (Not Detect) Stl Norovirus GI/GII PCR (Not Detect) Campylobacter (PCR) (Not Detect) C. difficile Tox (PCR) (Not Detect) Salmonella (PCR) (Not Detect) MDM Narrative Medical decision making narrative: Appropriate for discharge home. Exam reassuring. Images/results faxed to us from [facility] are reassuring. Patient does have surgeon to follow up with next week. Return precautions reviewed with her and . They desire discharge home. Prescription for potassium provided for hypokalemia. Potassium replacement started here. Potassium did improve. No paresthesia numbness tingling weakness. No palpitations. No EKG indicated this time. Discharge Plan Departure Patient Disposition: Home Clinical Impression: Diarrhea, Acute hypokalemia Instructions: DI for Dehydration -- Adult, DI for Hypokalemia, DI for Diarrhea and Traveler's Diarrhea -- Adult Activity Restrictions/Additional Instructions: See your surgeon next week for re-evaluation. Keep well hydrated. Return if worse if any questions or concerns. Prescription for supplemental potassium has been provided for you. At this time laboratory studies otherwise reassuring. Prescriptions: New potassium chloride 20 mEq tablet extended release 20 meq PO DAILY Qty: 10 0RF No Action fluoxetine 40 mg capsule 40 mg PO DAILY Label Comments: take 1 capsule by mouth once daily omeprazole 40 mg capsule,delayed release(DR/EC) 1 mg PO DAILY Label Comments: take 1 capsule by mouth EVERY MORNING BEFORE BREAKFAST take 1 cap... (REFER TO PRESCRIPTION NOTES). pramipexole 0.5 mg tablet 1 mg PO DAILY Label Comments: Take 1 tablet by mouth nightly. hydrochlorothiazide 25 mg tablet 25 mg PO DAILY Label Comments: take 1 tablet by mouth once daily Referrals: Jose Devries MD [Primary Care Provider] - Visit Report Forms: Patient Portal/API
[2022-01-13] MEDS: SODIUM CHLORIDE 0.9% 1,000 ML 1000 ML IV (21:20)
[2022-01-13 21:35] LABS: Add Manual Diff / Slide Review NO; Basophils Absolute Auto 0 /uL (0-100); Basophils Percent Auto 0.5 % (0-2); Eosinophils Absolute Auto 0 /uL (0-450); Eosinophils Percent Auto 0.7 % (2-4); Hematocrit 39.5 % (36-46); Hemoglobin 13.1 g/dL (12.0-16.0); Lymphocytes Absolute Auto 1600 /uL (1100-4500); Lymphocytes Percent Auto 26.7 % (25-40); Mean Corpuscular HGB Conc 33.2 % (30-36); Mean Corpuscular Hemoglobin 23.4 PG (26-34); Mean Corpuscular Volume 70.4 fL (80-100); Monocytes Absolute Auto 700 /uL (0-900); Monocytes Percent Auto 11.1 % (3-14); Neutrophils Absolute Auto 3600 /uL (1500-7000); Platelet Count 298 X10^3/uL (150-400); Red Blood Cell Count 5.61 X10^6/uL (4.0-5.2); Red Cell Distribution Width 15.9 % (11.6-14.8); White Blood Cell Count 5.9 X10^3/uL (4.5-11.0)
[2022-01-13 21:45] LABS: Alanine Aminotransferase 35 IU/L (<35); Albumin 4.7 g/dL (3.5-5.0); Albumin Globulin Ratio 1.2 (1.0-2.8); Alkaline Phosphatase 140 U/L (38-126); Aspartate Aminotransferase 31 IU/L (14-36); Bilirubin Total 0.4 mg/dL (0.2-1.3); Blood Urea Nitrogen 21 mg/dL (7-17); Calcium 9.1 mg/dL (8.4-10.2); Carbon Dioxide 34 mmol/L (22-32); Chloride 94 mmol/L (98-107); Estimated Glomerular Filt Rate > 60 mL/min (>60); Globulin 3.8 g/dL (1.7-4.1); Glucose 97 mg/dL (70-100); HEMOLYSIS 15 (0-50); Sodium 140 mmol/L (137-145); Total Protein 8.5 g/dL (6.3-8.2)
[2022-01-13 21:54] LABS: Potassium 2.3 mmol/L (3.4-5.1)
[2022-01-13] MEDS: POTASSIUM CHLORIDE IN WATER 10 MEQ/100 ML PIGGYBACK 100 MEQ IV (22:08)
[2022-01-13] MEDS: POTASSIUM CHLORIDE 20 MEQ/15 ML UDC PO (22:08)
[2022-01-13 22:15] VITALS: BP 134/73; PULSE 69; RESP 14; O2SAT 100
[2022-01-13 22:30] VITALS: BP 134/73; PULSE 72; RESP 20; O2SAT 99
--- NOTE | 2022-01-13 22:37 | PC.NURSE ---
RN called to room - c/o burning to the arm from the potassium infusion - slowed to 50ml/hr from 100ml/hr for comfort
--- NOTE | 2022-01-13 22:45 | PC.NURSE ---
Family to bedside
[2022-01-13 23:00] VITALS: BP 121/65; PULSE 66; RESP 14; O2SAT 98
[2022-01-13 23:02] LABS: Adenovirus F 40/41 Not Detected (Not Detect); Astrovirus Not Detected (Not Detect); Campylobacter Not Detected (Not Detect); Clostridium difficile toxin AB Not Detected (Not Detect); Cryptosporidium Not Detected (Not Detect); Cyclospora cayetanensis Not Detected (Not Detect); Entamoeba histolytica Not Detected (Not Detect); Enteroaggregative E.coli Not Detected (Not Detect); Enteropathogenic E.coli Not Detected (Not Detect); Enterotoxigenic E.coli It/st Not Detected (Not Detect); Giardia lamblia Not Detected (Not Detect); Norovirus GI/GII Not Detected (Not Detect); Plesiomonsa shigelloides Not Detected (Not Detect); Rotavirus A Not Detected (Not Detect); Salmonella Not Detected (Not Detect); Sapovirus Not Detected (Not Detect); Shiga-like toxin-prod E.coli Not Detected (Not Detect); Shigella/Enteroinvasive E.coli Not Detected (Not Detect); Vibrio Not Detected (Not Detect); Vibrio cholerae Not Detected (Not Detect); Yersinia enterocolitica Not Detected (Not Detect)
--- NOTE | 2022-01-13 23:45 | PC.NURSE ---
Up to bathroom - steady gait
[2022-01-14] VITALS: BP 118/63; PULSE 66; RESP 16; O2SAT 99
[2022-01-14] MEDS: POTASSIUM CHLORIDE IN WATER 10 MEQ/100 ML PIGGYBACK 75 MEQ IV (00:05)
--- NOTE | 2022-01-14 00:15 | PC.NURSE ---
Resting quietly with family at bedside - no needs voiced - uses bathroom intermittently - alert and oriented - PWD with respirations equal and unlabored bilaterally
--- NOTE | 2022-01-14 00:30 | PC.NURSE ---
Requesting requip for her restless legs - MD to bedside and order received
[2022-01-14] MEDS: ROPINIROLE 1 MG TABLET 1.5 MG PO (00:38)
[2022-01-14 01:00] VITALS: BP 131/76; PULSE 64; RESP 16; O2SAT 98
--- NOTE | 2022-01-14 01:15 | PC.NURSE ---
Resting quietly in NAD - no needs voiced - PWD with respirations equal and unlabored bialterally - family at bedside
[2022-01-14 01:30] VITALS: BP 129/69; PULSE 70; RESP 16; O2SAT 100
--- NOTE | 2022-01-14 02:00 | PC.NURSE ---
No changes in pt status at this time
[2022-01-14 02:08] LABS: Potassium 2.8 mmol/L (3.4-5.1)
[2022-01-14 02:09] LABS: HEMOLYSIS 51 (0-50)
== END 2022-01-14 02:42 | disposition home or self-care (01) ==
PROVIDERS: Emergency Provider Emergency Medicine; PCP Family Medicine
DX: R19.7 Diarrhea, unspecified (principal); E87.6 Hypokalemia
CPT/HCPCS: 36415; 80053; 84132; 85025; 87507; 96365; 96366; 99284

== ENCOUNTER 2022-12-14 20:36 | Emergency (ER) | payer OTHER, MEDICAID, SELFPAY ==
[2022-12-14] VITALS (10 sets, daily range): BP systolic 114–155; BP diastolic 60–83; PULSE 53–78; RESP 18–24; TEMP 36.4; O2SAT 97–99; BMI 29.5
--- NOTE | 2022-12-14 20:51 | DI.RAD.S_ITS ---
PROCEDURE: XR CHEST 2V INDICATIONS: SOB TECHNIQUE: 2 views of the chest were acquired. COMPARISON: [facility], CR, XR CHEST 2V, 09/16/2021, 22:26. FINDINGS: Surgical changes and devices: None. Lungs and pleura: Lungs are clear. No pleural effusions or definite pneumothorax. Mild chronic blunting of the bilateral costophrenic angles appears unchanged and likely represents pleural thickening. Mediastinum: Mediastinal contours are normal. Heart size is normal. Bones and chest wall: No suspicious bony abnormalities. Soft tissues appear unremarkable. IMPRESSION: 1. No definite acute cardiopulmonary disease. Dictated by: Benny Ortiz M.D. on 12/14/2022 at 22:41 Approved by: Benny Ortiz M.D. on 12/14/2022 at 22:43
[2022-12-14 21:08] LABS: Add Manual Diff / Slide Review NO; Basophils Absolute Auto 100 /uL (0-100); Basophils Percent Auto 0.8 % (0-2); Eosinophils Absolute Auto 100 /uL (0-450); Eosinophils Percent Auto 1.3 % (2-4); Hematocrit 41.1 % (36-46); Hemoglobin 14.5 g/dL (12.0-16.0); Lymphocytes Absolute Auto 1900 /uL (1100-4500); Lymphocytes Percent Auto 23.3 % (25-40); Mean Corpuscular HGB Conc 35.4 % (30-36); Mean Corpuscular Hemoglobin 30.7 PG (26-34); Mean Corpuscular Volume 86.9 fL (80-100); Monocytes Absolute Auto 400 /uL (0-900); Monocytes Percent Auto 4.9 % (3-14); Neutrophils Absolute Auto 5600 /uL (1500-7000); Neutrophils Percent Auto 69.7 % (50-75); Platelet Count 263 X10^3/uL (150-400); Red Blood Cell Count 4.73 X10^6/uL (4.0-5.2); Red Cell Distribution Width 13.4 % (11.6-14.8); White Blood Cell Count 8.1 X10^3/uL (4.5-11.0)
[2022-12-14] MEDS: SODIUM CHLORIDE 0.9% 1,000 ML 150 ML IV (21:08)
[2022-12-14 21:10] LABS: D Dimer 370 ng/ml (<500)
[2022-12-14 21:18] LABS: Alanine Aminotransferase 37 IU/L (<35); Albumin 4.6 g/dL (3.5-5.0); Albumin Globulin Ratio 1.3 (1.0-2.8); Alkaline Phosphatase 102 U/L (38-126); Aspartate Aminotransferase 33 IU/L (14-36); BUN Creatinine Ratio 28.1 (6-22); Bilirubin Total 0.6 mg/dL (0.2-1.3); Blood Urea Nitrogen 18 mg/dL (7-17); Calcium 9.8 mg/dL (8.4-10.2); Carbon Dioxide 25 mmol/L (22-32); Chloride 105 mmol/L (98-107); Creatine Kinase 71 U/L (30-135); Estimated Glomerular Filt Rate > 60 mL/min (>60); Globulin 3.5 g/dL (1.7-4.1); Glucose 92 mg/dL (70-100); HEMOLYSIS 29 (0-50); Lipase 44 U/L (23-300); Potassium 3.5 mmol/L (3.4-5.1); Sodium 140 mmol/L (137-145); Total Protein 8.1 g/dL (6.3-8.2)
[2022-12-14 21:26] LABS: NT-proBNP (BNP-Adult 18+) 53 pg/mL (<125)
[2022-12-14 21:29] LABS: Troponin I < 0.012 ng/mL (0.01-0.034)
[2022-12-14 21:34] LABS: Procalcitonin 0.03 ng/mL (<0.5)
--- NOTE | 2022-12-14 21:50 | ED_ITS ---
HPI - SOB/Dyspnea General Chief Complaint: Shortness of Breath/Dyspnea Stated Complaint: states can't breathe Time Seen by Provider: 12/14/22 20:40 Source: patient Mode of arrival: Ambulatory Limitations: no limitations History of Present Illness HPI Narrative: 52-year-old female nonsmoker with extensive history of multiple prior abdominal surgeries presents with a chief complaint of shortness of breath that started this evening soon after eating. There was no clear pattern to her shortness of breath, it was persistent and not necessarily made worse by position or activity. She denies any dizziness, weakness or lightheadedness. She denied any chest pain, cough, fever or chills. She has some mild nausea but denies any vomiting, mild abdominal discomfort and no diarrhea. She denies recent trauma, history of blood clot or lower extremity pain, swelling or redness Related Data Home Medications Medication Instructions Recorded Confirmed fluoxetine 40 mg capsule 40 mg PO DAILY 09/17/21 09/17/21 hydrochlorothiazide 25 mg tablet 25 mg PO DAILY 09/17/21 09/17/21 omeprazole 40 mg capsule,delayed 1 mg PO DAILY 09/17/21 09/17/21 release pramipexole 0.5 mg tablet 1 mg PO DAILY 09/17/21 09/17/21 Previous Rx's Medication Instructions Recorded potassium chloride 20 mEq 20 meq PO DAILY #10 tabs 01/14/22 tablet,extended release Allergies Allergy/AdvReac Type Severity Reaction Status Date / Time No Known Drug Allergies Allergy Verified 09/17/21 00:30 Review of Systems Review of Systems Narrative: GENERAL: Denies chills, fatigue, malaise, fever, sweats. HEENT: Denies sinus pain, ear pain, sore throat, difficulty swallowing, dizziness. RESPIRATORY: See HPI CARDIOVASCULAR: Denies chest pain, palpitations, orthopnea, edema, GASTROINTESTINAL: See HPI : Denies dysuria, frequency, incontinence, hematuria, urinary retention. MUSCULOSKELETAL: denies weakness, joint pain, or bony pain SKIN: Denies rash, skin lesions, or other NEUROLOGIC: Denies weakness, headache, numbness, change in speech, confusion, seizures, incoordination. PSYCHIATRIC: No concerning psychosocial issues. 12 point review of systems is negative except for those stated above Patient History Medical History Hiatal hernia Surgical History History of cholecystectomy Social History household members: spouse Smoking Status: Never smoker Smoking Status: Never smoker alcohol intake frequency: 0-2 drinks per day Substance Use Type: does not use Exam Narrative Exam Narrative: GENERAL: [52] year old patient appears stated age. Well-developed patient, in mild distress. HEAD: Atraumatic. Normocephalic. EYES: Pupils equal round and reactive. Extraocular motions intact. No scleral icterus. No injection or drainage. ENT: Nose without bleeding, purulent drainage. Throat without erythema, tonsillar hypertrophy or exudate. Airway patent. NECK: Trachea midline. Non tender CARDIOVASCULAR: Regular rate and rhythm without murmurs, gallops, or rubs. RESPIRATORY: Clear to auscultation. Breath sounds equal bilaterally. No wheezes, rales, or rhonchi. GASTROINTESTINAL: Abdomen soft, non-tender, nondistended. EXTREMITIES: No edema or joint tenderness. BACK: Nontender without deformity or crepitance. No flank tenderness. NEURO: AOx3. SKIN: No rash or erythema of visible areas Initial Vital Signs Initial Vital Signs: Vital Signs Temperature 97.6 F 12/14/22 20:42 Pulse Rate 78 12/14/22 20:42 Respiratory Rate 18 12/14/22 20:42 Blood Pressure 136/75 12/14/22 20:42 Pulse Oximetry 99 12/14/22 20:42 Oxygen Delivery Method Room Air 12/14/22 20:42 Course Orders Ordered: ED Orders 12/14/22 20:50 Complete Blood Count AUTO DIFF Stat Comprehensive Metabolic Panel Stat D Dimer Stat Lipase Stat NT-proBNP (BNP-Adult 18+) Stat Procalcitonin Stat Troponin & CK Cardiac Panel Stat EKG-12 Lead Stat 12/14/22 20:51 XR chest 2V Stat 12/14/22 23:41 CT chest abd pel w con Stat Sodium Chloride (Normal Saline 0.9%) 1,000 mls @ 150 mls/hr IV CONT ANSHU Last Admin: 12/14/22 21:08 Dose: 150 mls/hr Documented By: NICK Vital Signs Vital signs: Vital Signs - 8 hr 12/14/22 20:42 12/14/22 20:53 12/14/22 20:54 Temperature 97.6 F Pulse Rate 78 74 70 Respiratory Rate 18 20 22 Blood Pressure 136/75 Pulse Oximetry 99 99 98 Oxygen Delivery Method Room Air 12/14/22 20:54 12/14/22 21:00 12/14/22 21:00 Temperature Pulse Rate 70 Respiratory Rate 21 Blood Pressure 139/83 122/72 Pulse Oximetry 98 Oxygen Delivery Method 12/14/22 21:30 12/14/22 21:30 12/14/22 22:00 Temperature Pulse Rate 60 58 L Respiratory Rate 24 21 Blood Pressure 114/60 Pulse Oximetry 98 98 Oxygen Delivery Method 12/14/22 22:06 12/14/22 22:06 12/14/22 22:30 Temperature Pulse Rate 58 L Respiratory Rate 18 Blood Pressure 127/71 138/71 Pulse Oximetry 97 Oxygen Delivery Method 12/14/22 22:30 12/14/22 23:00 12/14/22 23:00 Temperature Pulse Rate 53 L 61 Respiratory Rate Blood Pressure 155/70 H Pulse Oximetry 97 97 Oxygen Delivery Method 12/14/22 23:30 12/14/22 23:30 12/15/22 00:00 Temperature Pulse Rate 53 L 58 L Respiratory Rate 18 Blood Pressure 128/66 Pulse Oximetry 99 96 Oxygen Delivery Method MDM - SOB/Dyspnea Lab Data 12/14/22 20:50 12/14/22 20:50 Labs: Lab Results 12/14/22 12/14/22 12/14/22 Range/Units 20:50 20:50 20:50 WBC 8.1 (4.5-11.0) X10^3/uL RBC 4.73 (4.0-5.2) X10^6/uL Hgb 14.5 (12.0-16.0) g/dL Hct 41.1 (36-46) % MCV 86.9 (80-100) fL MCH 30.7 (26-34) PG MCHC 35.4 (30-36) % RDW 13.4 (11.6-14.8) % Plt Count 263 (150-400) X10^3/uL Neut % (Auto) 69.7 (50-75) % Lymph % (Auto) 23.3 L (25-40) % [place] % (Auto) 4.9 (3-14) % Eos % (Auto) 1.3 L (2-4) % Baso % (Auto) 0.8 (0-2) % Neut # (Auto) 5600 (4217-1173) /uL Lymph # (Auto) 1900 (1212-9740) /uL [place] # (Auto) 400 (0-900) /uL Eos # (Auto) 100 (0-450) /uL Baso # (Auto) 100 (0-100) /uL D-Dimer 370 (<500) ng/ml Sodium 140 (137-145) mmol/L Potassium 3.5 (3.4-5.1) mmol/L Chloride 105 (98-107) mmol/L Carbon Dioxide 25 (22-32) mmol/L BUN 18 H (7-17) mg/dL Creatinine 0.64 (0.52-1.04) mg/dL Estimated GFR > 60 (>60) mL/min BUN/Creatinine Ratio 28.1 H (6-22) Glucose 92 (70-100) mg/dL Calcium 9.8 (8.4-10.2) mg/dL Total Bilirubin 0.6 (0.2-1.3) mg/dL AST 33 (14-36) IU/L ALT 37 H (<35) IU/L Alkaline Phosphatase 102 (38-126) U/L Total Creatine Kinase 71 (30-135) U/L Troponin I < 0.012 (0.01-0.034) ng/mL NT-Pro-B Natriuret Pep (<125) pg/mL Total Protein 8.1 (6.3-8.2) g/dL Albumin 4.6 (3.5-5.0) g/dL Globulin 3.5 (1.7-4.1) g/dL Albumin/Globulin Ratio 1.3 (1.0-2.8) Lipase 44 (23-300) U/L Procalcitonin 0.03 (<0.5) ng/mL 12/14/22 Range/Units 20:50 WBC (4.5-11.0) X10^3/uL RBC (4.0-5.2) X10^6/uL Hgb (12.0-16.0) g/dL Hct (36-46) % MCV (80-100) fL MCH (26-34) PG MCHC (30-36) % RDW (11.6-14.8) % Plt Count (150-400) X10^3/uL Neut % (Auto) (50-75) % Lymph % (Auto) (25-40) % [place] % (Auto) (3-14) % Eos % (Auto) (2-4) % Baso % (Auto) (0-2) % Neut # (Auto) (6474-9822) /uL Lymph # (Auto) (1081-1323) /uL [place] # (Auto) (0-900) /uL Eos # (Auto) (0-450) /uL Baso # (Auto) (0-100) /uL D-Dimer (<500) ng/ml Sodium (137-145) mmol/L Potassium (3.4-5.1) mmol/L Chloride (98-107) mmol/L Carbon Dioxide (22-32) mmol/L BUN (7-17) mg/dL Creatinine (0.52-1.04) mg/dL Estimated GFR (>60) mL/min BUN/Creatinine Ratio (6-22) Glucose (70-100) mg/dL Calcium (8.4-10.2) mg/dL Total Bilirubin (0.2-1.3) mg/dL AST (14-36) IU/L ALT (<35) IU/L Alkaline Phosphatase (38-126) U/L Total Creatine Kinase (30-135) U/L Troponin I (0.01-0.034) ng/mL NT-Pro-B Natriuret Pep 53 (<125) pg/mL Total Protein (6.3-8.2) g/dL Albumin (3.5-5.0) g/dL Globulin (1.7-4.1) g/dL Albumin/Globulin Ratio (1.0-2.8) Lipase (23-300) U/L Procalcitonin (<0.5) ng/mL MDM Narrative Medical decision making narrative: [52] year old patient presents with shortness of breath Multiple etiologies for patient's symptoms considered including, but not limited to: [Pulmonary embolism versus pneumonia versus bowel obstruction versus cardiac ischemia versus other] Prior Charts reviewed in our EMR Primary Historian: patient Labs reviewed and interpreted by myself: No significant abnormalities require specific intervention Imaging reviewed: CT of chest abdomen pelvis without acute findings Patient's symptoms improved over duration of stay with above-stated therapies. Multiple diagnoses considered as noted above. Cardiac ischemia thought unlikely given lack of pain, dizziness or lightheadedness, exertional symptoms, ischemic change on EKG, negative troponin and low heart score. Pulmonary embolism considered but thought unlikely given negative D-dimer, no indication for angiogram. No evidence of pneumonia or fluid overload on imaging. Patient states that she is been having symptoms not unlike this for a month or so which seemed to be brought on by eating and drinking and given her history of bowel obstruction and prior abdominal diagnoses and surgeries it seems likely related to the GI tract, thankfully labs and imaging demonstrate no significant abnormality. She is tolerating orals, symptoms improving with course of the visit. She is given a copy of her imaging on disc, encouraged to follow up closely with her GI and Surgical team Findings and discharge diagnosis discussed with patient/family followed by verbalization of understanding Return precautions discussed with patient/family whom verbalize understanding of diagnosis and plan Discharge Plan Departure Patient Disposition: Home Clinical Impression: Acute dyspnea, Abdominal fullness Activity Restrictions/Additional Instructions: *You have been diagnosed with [shortness of breath. As we discussed your history and physical exam are reassuring as are labs and imaging. There is no evidence of a cardiac abnormality, blood clot, pneumonia or complication of your prior abdominal surgeries such as bowel obstruction.] *What to do: *Please continue to take your regular medications as directed. [ ] New medication prescriptions sent to your pharmacy: [ ] [ ] New medication written as a paper prescription [ ] No new medications given *Please follow up with your primary care provider in 2-3 days, call for an appointment. Let them know you were seen in the Emergency Department and that we ask that you be seen in follow up. We will electronically transmit a record of today's note if your PCP is in our system *If you do not have a primary care provider please contact the [facility] Resource line at [phone]. They will ask some questions about your medical history and help get you set up with a doctor in the community. *Return to Emergency Department if you should have any new, worsening or concerning symptoms, such as [fever greater than 101 F, shaking chills, worsening pain, persistent vomiting or other bothersome symptoms] Prescriptions: No Action fluoxetine 40 mg capsule 40 mg PO DAILY Patient Comments: take 1 capsule by mouth once daily omeprazole 40 mg capsule,delayed release(DR/EC) 1 mg PO DAILY Patient Comments: take 1 capsule by mouth EVERY MORNING BEFORE BREAKFAST take 1 cap... (REFER TO PRESCRIPTION NOTES). pramipexole 0.5 mg tablet 1 mg PO DAILY Patient Comments: Take 1 tablet by mouth nightly. hydrochlorothiazide 25 mg tablet 25 mg PO DAILY Patient Comments: take 1 tablet by mouth once daily potassium chloride 20 mEq tablet extended release 20 meq PO DAILY Qty: 10 0RF Referrals: Jose Devries MD [Primary Care Provider] - Stand Alone Forms: Patient Portal/API
--- NOTE | 2022-12-14 23:41 | DI.CT.S_ITS ---
PROCEDURE: CT CHEST ABD PEL W CON INDICATIONS: chest / abd pain, SOB, hx internal hernias TECHNIQUE: After the administration of intravenous contrast, axial sections acquired from the supraclavicular neck to the pubic symphysis. Coronal and sagittal reformats were performed. For radiation dose reduction, the following was used: automated exposure control, adjustment of mA and/or kV according to patient size. COMPARISON: [facility], CT, CT ABDOMEN PELVIS W CON, 11/16/2021, 0:29. FINDINGS: Image quality: Excellent. CHEST: Lower Neck: No lymphadenopathy by size criteria. Thyroid: Visualized thyroid demonstrates no discrete nodules. Axillae: No lymphadenopathy by size criteria. Chest Wall: Unremarkable. Lungs and Airways: No acute consolidation. There are linear areas of scarring and atelectasis bilaterally. In addition, in the right lower lobe there are medial indistinct opacities within the posterior costophrenic angle. The trachea and central airways are patent. Pleura: No pneumothorax or pleural effusions. Heart: Heart size is normal. No pericardial effusion. Thoracic Vessels: The aorta and pulmonary arteries are normal in size. Mediastinum and Nanda: No lymphadenopathy by size criteria. Esophagus: No wall thickening. No hiatal hernia. ABDOMEN: Liver: No mass lesion. Gallbladder: Within normal limits without calcified gallstones. Biliary ducts: No biliary ductal dilatation. Pancreas: Unremarkable. Spleen: Normal in size. Adrenal Glands: No adrenal nodules. Kidneys and Ureters: No hydronephrosis. Stomach and Bowel: Stomach, small bowel loops, and colon are normal in caliber and wall thickness. Peritoneum: No abnormal intraperitoneal fluid. No free air. Ventral Wall: No hernia. Abdominal Nodes: No retroperitoneal or mesenteric adenopathy by size criteria. Vessels: Aorta and inferior vena cava are normal in size. PELVIS: Pelvic Organs: Uterus is surgically absent. Bladder: Unremarkable. Pelvic Nodes: No enlarged lymph nodes. Miscellaneous: No inguinal hernias are seen. Bones: Visualized upper abdomen demonstrates postsurgical changes in the stomach consistent with prior gastrojejunostomy. Gallbladder surgically absent. IMPRESSION: 1. No definite acute intra-abdominal abnormality. 2. No evidence of an internal hernia. Dictated by: Benny Ortiz M.D. on 12/15/2022 at 0:33 Approved by: Benny Ortiz M.D. on 12/15/2022 at 0:37
[2022-12-15] VITALS: PULSE 58; O2SAT 96
[2022-12-15 01:37] VITALS: BP 122/71; PULSE 56; RESP 16; O2SAT 98
== END 2022-12-15 01:38 | disposition home or self-care (01) ==
PROVIDERS: Emergency Provider Emergency Medicine; PCP Family Medicine
DX: R06.00 Dyspnea, unspecified (principal); R19.8 Other specified symptoms and signs involving the digestive system and abdomen
CPT/HCPCS: 36415; 71046; 71260; 74177; 80053; 82550; 83690; 83880; 84145; 84484; 85025; 85379; 93005; 99284; Q9967

== ENCOUNTER → 2023-05-11 16:46 | Outpatient (CLI) | payer OTHER, MEDICAID, SELFPAY ==
--- NOTE | 2023-05-11 | DI.RAD.S_ITS ---
PROCEDURE: XR CERVICAL SPINE 4V OR 5V INDICATIONS: BACK PAIN TECHNIQUE: 5 views of the cervical spine acquired. COMPARISON: None. FINDINGS: Bones: No fractures or dislocations to the T1 level. There is straightening of the normal cervical lordosis. Trace anterolisthesis of C2 on C3. Moderate disc height loss at C5 to C6 with endplate degenerative changes. Oblique images demonstrate severe right foraminal stenosis at C5-C6. Soft tissues: No prevertebral soft tissue swelling. IMPRESSION: No acute osseous abnormality. Moderate degenerative changes at C5-C6. Severe right C5-C6 foraminal stenosis Approved by: Kaykay Jacobson M.D. on 05/13/2023 at 23:37
== END ==
PROVIDERS: PCP Family Medicine; Referring Provider Nurse Practitioner Family; Visit Provider Nurse Practitioner Family
DX: M47.22 Other spondylosis with radiculopathy, cervical region (principal); M48.02 Spinal stenosis, cervical region; M54.2 Cervicalgia
CPT/HCPCS: 72050

== ENCOUNTER 2023-06-24 23:26 | Emergency (ER) | payer OTHER, MEDICAID, SELFPAY ==
[2023-06-24 23:47] VITALS: BP 147/84; PULSE 93; RESP 17; TEMP 37; O2SAT 100; BMI 32.5
--- NOTE | 2023-06-25 00:06 | ED.NECK ---
HPI - Neck Pain/Injury General Chief Complaint: Neck Pain/Injury Stated Complaint: neck pain Time Seen by Provider: 06/24/23 23:41 Mode of arrival: Ambulatory History of Present Illness HPI Narrative: 53-year-old female presents by private vehicle from home for 6 weeks of progressively worsening neck pain. Patient states that she saw her primary care doctor multiple weeks ago for neck pain and requested physical therapy. Patient states that she went to physical therapy but did not make things better and so she was referred to Orthopedics. Orthopedics has recommended an MRI but due to numerous issues with insurance, this has not been done. Patient states that insurance will not approve and MRI and she is essentially in a loop between her primary, orthopedics, and insurance. She has been taking ibuprofen, tylenol, muscle relaxers, and gabapentin but is still having significant pain. She was told by her doctors that if the pain is too bad she could go to the ED. Related Data Home Medications Medication Instructions Recorded Confirmed fluoxetine 40 mg capsule 40 mg PO DAILY 09/17/21 09/17/21 hydrochlorothiazide 25 mg tablet 25 mg PO DAILY 09/17/21 09/17/21 omeprazole 40 mg capsule,delayed 1 mg PO DAILY 09/17/21 09/17/21 release pramipexole 0.5 mg tablet 1 mg PO DAILY 09/17/21 09/17/21 Previous Rx's Medication Instructions Recorded potassium chloride 20 mEq 20 meq PO DAILY #10 tabs 01/14/22 tablet,extended release dexamethasone 4 mg tablet 4 mg PO BID #6 tabs 06/25/23 hydrocodone 5 mg-acetaminophen 325 1 tab PO Q8H PRN pain #14 tabs 06/25/23 mg tablet Allergies Allergy/AdvReac Type Severity Reaction Status Date / Time droperidol Allergy Verified 06/24/23 23:45 erythromycin base Allergy Verified 06/24/23 23:45 Review of Systems Review of Systems Narrative: See HPI Patient History Medical History Hiatal hernia Surgical History History of cholecystectomy Social History household members: spouse Smoking Status: Never smoker Smoking Status: Never smoker alcohol intake frequency: 0-2 drinks per day Substance Use Type: does not use Exam Initial Vital Signs Initial Vital Signs: Vital Signs Temperature 98.6 F 06/24/23 23:47 Pulse Rate 93 H 06/24/23 23:47 Respiratory Rate 17 06/24/23 23:47 Blood Pressure 147/84 H 06/24/23 23:47 Pulse Oximetry 100 06/24/23 23:47 Oxygen Delivery Method Room Air 06/24/23 23:47 Const: Awake, alert, no acute distress, nontoxic appearing MSK: Generalized tenderness over neck and upper shoulder region, full range of motion Skin: Warm, Dry, intact, no rashes Neuro: AO x3, CN II-XII grossly intact, moves all extremities Course Orders Ordered: ED Orders 06/25/23 00:06 CT cervical spine wo con Stat Discontinued Medications Dexamethasone (Dexamethasone 10 Mg/Ml Vial) 10 mg IV NOW ONE Stop: 06/25/23 00:07 Last Admin: 06/25/23 00:25 Dose: 10 mg Documented By: GARTH Acetaminophen (Ofirmev) 1,000 mg in 100 mls @ 400 mls/hr IV NOW ONE Stop: 06/25/23 00:20 Last Infusion: 06/25/23 00:49 Dose: Infused Documented By: Admin: 06/25/23 00:26 Dose: 400 mls/hr Documented By: GARTH Ketorolac Tromethamine (Ketorolac 30 Mg/Ml Vial) 15 mg IV NOW ONE Stop: 06/25/23 00:07 Last Admin: 06/25/23 00:26 Dose: 15 mg Documented By: GARTH Vital Signs Vital signs: Vital Signs - 8 hr 06/24/23 23:47 06/25/23 01:09 06/25/23 01:14 Temperature 98.6 F 98.1 F Pulse Rate 93 H 79 Respiratory Rate 17 18 Blood Pressure 147/84 H 132/76 Pulse Oximetry 100 98 Oxygen Delivery Method Room Air Room Air MDM - Neck Pain/Injury Differential Diagnosis Differential diagnosis: Likely disc disorder of cervical region, whiplash injury to neck and closed subluxation of cervical spine Imaging Data CT - cervical spine: Radiologist's Impression: PROCEDURE: CT CERVICAL SPINE WO CON INDICATIONS: PROGRESSIVE CERVICAL PAIN AND BILAT PARESTHESIAS TECHNIQUE: Noncontrast 3 mm thick sections acquired from the skull base to the T4 level. Sagittal and coronal reformats were then constructed. For radiation dose reduction, the following was used: automated exposure control, adjustment of mA and/or kV according to patient size. COMPARISON: [facility], CT, CT CHEST ABD PEL W CON, 12/14/2022, 23:48. [facility], CR, XR CERVICAL SPINE 4V OR 5V, 05/11/2023, 17:05. FINDINGS: Image quality: Excellent. Bones: No fractures or dislocations. Trace anterolisthesis at C2-C3 and C3-C4. Multilevel degenerative disc disease, moderate at C5-C6 and mild at other levels. Bilateral facet arthropathy, most pronounced at C2-C3 on the right and C3-C4 on the left. Visualized superior ribs are intact. Soft tissues: Prevertebral soft tissues are normal in thickness. No paravertebral hematomas. No apical pneumothoraces. Partial visualization of enlarged prevascular lymph node measuring 2.0 x 3.8 cm. IMPRESSION: 1. Degenerative disc and facet disease in cervical spine as described. 2. If clinical symptoms persist, consider MRI for further evaluation. Dictated by: Miracle Logan M.D. on 06/25/2023 at 0:33 Approved by: Miracle Logan M.D. on 06/25/2023 at 0:37 MDM Narrative Medical decision making narrative: Patient with persistent neck pain and poor pain control, unable to get advanced imaging due to insurance denies. She is neurologically and vascularly intact. CT imaging ordered for assessment, degenerative disk changes seen. Patient given IV nonnarcotic pain medications and reported improvement in her pain. She was given a copy of her CT results, counseled to continue to try and follow up with Orthopedics and primary care. She was encouraged to use her nonnarcotic pain medications as 1st line, however if her pain is unbearable a short course of [place] was sent to her pharmacy. Discharge Plan Departure Patient Disposition: Home Clinical Impression: Neck pain Instructions: DI for Neck Pain Activity Restrictions/Additional Instructions: Continue to take Tylenol and Motrin as previously prescribed. A short course of steroids has been sent to the pharmacy, this may help your pain. In addition short course of pain medications has been sent to your pharmacy. Be sure to take no more than 4000 mg total of ibuprofen daily. These drugs may cause drowsiness and constipation, do not take them with alcohol or before driving or operating heavy machinery. Take a stool softener daily to prevent constipation. Prescriptions: New dexamethasone 4 mg tablet 4 mg PO BID Qty: 6 0RF hydrocodone-acetaminophen 5-325 mg tablet 1 tab PO Q8H PRN (Reason: pain) Qty: 14 0RF No Action fluoxetine 40 mg capsule 40 mg PO DAILY Patient Comments: take 1 capsule by mouth once daily omeprazole 40 mg capsule,delayed release(DR/EC) 1 mg PO DAILY Patient Comments: take 1 capsule by mouth EVERY MORNING BEFORE BREAKFAST take 1 cap... (REFER TO PRESCRIPTION NOTES). pramipexole 0.5 mg tablet 1 mg PO DAILY Patient Comments: Take 1 tablet by mouth nightly. hydrochlorothiazide 25 mg tablet 25 mg PO DAILY Patient Comments: take 1 tablet by mouth once daily potassium chloride 20 mEq tablet extended release 20 meq PO DAILY Qty: 10 0RF Referrals: Jose Devries MD [Primary Care Provider] - Stand Alone Forms: Patient Portal/API
[2023-06-25] MEDS: DEXAMETHASONE 10 MG/ML VIAL IV (00:25)
[2023-06-25] MEDS: ACETAMINOPHEN IV 1,000 MG/100 ML VIAL 400 MG IV (00:26)
[2023-06-25] MEDS: KETOROLAC 30 MG/ML VIAL 15 MG IV (00:26)
[2023-06-25 01:09] VITALS: BP 132/76; PULSE 79; RESP 18; O2SAT 98
[2023-06-25 01:14] VITALS: TEMP 36.7
== END 2023-06-25 01:16 | disposition home or self-care (01) ==
PROVIDERS: Emergency Provider Emergency Medicine; PCP Family Medicine
DX: M54.2 Cervicalgia (principal)
CPT/HCPCS: 72125; 96365; 96375; 99284; J0136; J1100; J1885

== ENCOUNTER → 2023-07-05 19:45 | Outpatient (CLI) | payer OTHER, MEDICAID, SELFPAY ==
--- NOTE | 2023-07-05 19:47 | DI.MRI.S_ITS ---
PROCEDURE: MR CERVICAL SPINE WO CON INDICATIONS: Radiculopathy, cervical region TECHNIQUE: Noncontrast sagittal T1 spin echo and T2 fast spin echo, sagittal STIR, foraminal oblique sagittal T2 fast spin echo, and axial gradient echo or T2 fast spin echo through the cervical spine. COMPARISON: [facility], CT, CT CERVICAL SPINE WO CON, 06/25/2023, 0:24. [facility], CR, XR CERVICAL SPINE 4V OR 5V, 05/11/2023, 17:05. FINDINGS: Image quality: Excellent. Alignment and Curvature: There is normal bony alignment. Bone Marrow: Cervical straightening is present with trace retrolisthesis of C5 on C6. Spinal Cord: Visualized spinal cord has normal size and signal. No cerebellar tonsillar herniation. Paraspinous Soft Tissues: No paravertebral masses. Prevertebral soft tissues are normal in thickness. Discs: Mild disc desiccation is present C5-6, C6-7. C2-C3: Minimal disc bulge without spinal stenosis. Moderate right foraminal narrowing with prominent asymmetric uncovertebral hypertrophy. C3-C4: Mild disc bulge with minimal thecal sac effacement. Mild left foraminal narrowing. Uncovertebral hypertrophy is present. C4-C5: Mild disc bulge without spinal stenosis. Minimal to mild left foraminal narrowing with uncovertebral hypertrophy. C5-C6: Mild disc bulge with mild spinal stenosis. [id number] bilateral foraminal narrowing, right greater than left with uncovertebral hypertrophy. C6-C7: Mild disc bulge with minimal effacement of the anterior thecal sac. Mild to moderate right foraminal narrowing with uncovertebral hypertrophy. C7-T1: No disc bulge, spinal stenosis or foraminal narrowing. IMPRESSION: Overall, early degenerative changes. Multilevel disc bulges. Multilevel foraminal narrowing overall mild most prominent at C2-3, C5-6 secondary to uncovertebral hypertrophy. Dictated by: Casandra Petersen M.D. on 07/06/2023 at 14:01 Approved by: Casandra Petersen M.D. on 07/06/2023 at 14:03
== END ==
LOC: MRI 19:45
PROVIDERS: PCP Nurse Practitioner Family; Referring Provider Physician Assistant Surgical; Visit Provider Physician Assistant Surgical
DX: M50.11 Cervical disc disorder with radiculopathy, high cervical region (principal); M47.22 Other spondylosis with radiculopathy, cervical region; M48.02 Spinal stenosis, cervical region
CPT/HCPCS: 72141

== ENCOUNTER → 2023-10-17 09:20 | Outpatient (CLI) | payer OTHER, MEDICAID, SELFPAY ==
[2023-10-17 10:11] LABS: Hemoglobin A1C% w Est Avg Glu 5.7 % (4.0-6.0)
[2023-10-17 10:26] LABS: Alanine Aminotransferase 39 IU/L (<35); Albumin 4.4 g/dL (3.5-5.0); Albumin Globulin Ratio 1.6 (1.0-2.8); Alkaline Phosphatase 116 U/L (38-126); Aspartate Aminotransferase 26 IU/L (14-36); BUN Creatinine Ratio 20.8 (6-22); Bilirubin Total 0.6 mg/dL (0.2-1.3); Blood Urea Nitrogen 15 mg/dL (7-17); Calcium 8.9 mg/dL (8.4-10.2); Carbon Dioxide 25 mmol/L (22-32); Chloride 105 mmol/L (98-107); Cholesterol 174 mg/dL (140-199); Estimated Glomerular Filt Rate > 60 mL/min (>60); Globulin 2.7 g/dL (1.7-4.1); Glucose 96 mg/dL (70-100); HDL Cholesterol 72 mg/dL (40-60); HEMOLYSIS < 15 (0-50); LDL Cholesterol Calculated 79 mg/dL (<100); Potassium 3.9 mmol/L (3.4-5.1); Sodium 139 mmol/L (137-145); Total Protein 7.1 g/dL (6.3-8.2); Triglycerides 113 mg/dL (35-150)
[2023-10-17 10:32] LABS: Add Manual Diff / Slide Review NO; Basophils Absolute Auto 0 /uL (0-100); Basophils Percent Auto 0.8 % (0-2); Eosinophils Absolute Auto 0 /uL (0-450); Eosinophils Percent Auto 0.3 % (2-4); Hematocrit 42.3 % (36-46); Hemoglobin 14.7 g/dL (12.0-16.0); Lymphocytes Absolute Auto 1600 /uL (1100-4500); Lymphocytes Percent Auto 32.2 % (25-40); Mean Corpuscular HGB Conc 34.6 % (30-36); Mean Corpuscular Hemoglobin 30.3 PG (26-34); Mean Corpuscular Volume 87.5 fL (80-100); Monocytes Absolute Auto 300 /uL (0-900); Monocytes Percent Auto 5.7 % (3-14); Neutrophils Absolute Auto 3100 /uL (1500-7000); Platelet Count 241 X10^3/uL (150-400); Red Blood Cell Count 4.84 X10^6/uL (4.0-5.2); Red Cell Distribution Width 13.4 % (11.6-14.8); White Blood Cell Count 5.1 X10^3/uL (4.5-11.0)
[2023-10-17 10:50] LABS: Thyroid Stimulating Hormone 2.27 uIU/mL (0.47-4.68)
== END ==
LOC: LAB 09:22
PROVIDERS: PCP Nurse Practitioner Family; Referring Provider Nurse Practitioner Family; Visit Provider Nurse Practitioner Family
DX: I10 Essential (primary) hypertension (principal); E66.9 Obesity, unspecified; R60.9 Edema, unspecified; E78.5 Hyperlipidemia, unspecified
CPT/HCPCS: 36415; 80053; 80061; 83036; 84439; 84443; 85025

== ENCOUNTER 2023-12-07 17:27 | Emergency (ER) | payer OTHER, SELFPAY ==
[2023-12-07 17:34] VITALS: BMI 32.5
--- NOTE | 2023-12-07 17:42 | DI.RAD.S_ITS ---
PROCEDURE: XR KNEE RT 3V INDICATIONS: pain w/o injury TECHNIQUE: 3 views of the knee were acquired. COMPARISON: None. FINDINGS: Bones: No fractures or dislocations. No suspicious bony lesions. Soft tissues: Small joint effusion. No suspicious soft tissue calcifications. IMPRESSION: No acute bony abnormality. Small joint effusion. Consider follow-up MRI. Dictated by: Luis Felipe Bassett M.D. on 12/07/2023 at 18:43 Approved by: Luis Felipe Bassett M.D. on 12/07/2023 at 18:44
[2023-12-07 18:01] VITALS: BP 143/97; PULSE 78; RESP 16; TEMP 36.4; O2SAT 99
--- NOTE | 2023-12-07 18:12 | ED.EXTPRO ---
HPI - Extremity Problem General Chief complaint: Extremity Problem,Nontraumatic Stated complaint: rt knee px Time Seen by Provider: 12/07/23 18:07 Source: patient Mode of arrival: Family Vehicle History of Present Illness HPI Narrative: 53-year-old female with history of remote right knee surgery for Sabrina-Schlatter at age 20, no other knee surgeries on that side, 2 days ago felt a popping sensation in the right medial knee while getting up from a chair at work, no twisting component recalled, no fall or blunt trauma, pain seems to be anterior medial, not necessarily swollen. No fevers or chills. No other joints affected. He does not have ipsilateral hip pain, thigh pain, foreleg pain, ankle or foot or toe pain. No other extremity injuries. No low back pain symptoms. Related Data Home Medications Medication Instructions Recorded Confirmed fluoxetine 40 mg capsule 40 mg PO DAILY 09/17/21 09/17/21 hydrochlorothiazide 25 mg tablet 25 mg PO DAILY 09/17/21 09/17/21 omeprazole 40 mg capsule,delayed 1 mg PO DAILY 09/17/21 09/17/21 release pramipexole 0.5 mg tablet 1 mg PO DAILY 09/17/21 09/17/21 Previous Rx's Medication Instructions Recorded potassium chloride 20 mEq 20 meq PO DAILY #10 tabs 01/14/22 tablet,extended release dexamethasone 4 mg tablet 4 mg PO BID #6 tabs 06/25/23 hydrocodone 5 mg-acetaminophen 325 1 tab PO Q8H PRN pain #14 tabs 06/25/23 mg tablet tramadol 50 mg tablet 50 mg PO TID PRN pain #14 tabs 12/07/23 Allergies Allergy/AdvReac Type Severity Reaction Status Date / Time droperidol Allergy Verified 12/07/23 19:27 erythromycin base Allergy Verified 12/07/23 19:27 Review of Systems Review of Systems Narrative: see HPI Patient History Medical History Hiatal hernia Surgical History History of cholecystectomy Social History household members: spouse Smoking Status: Never smoker Smoking Status: Never smoker alcohol intake frequency: 0-2 drinks per day Substance Use Type: does not use Exam Narrative Exam Narrative: Exam GENERAL: Well-developed patient, in mild distress. HEAD: Atraumatic. Normocephalic. EYES: Pupils equal round and reactive. Extraocular motions intact. No scleral icterus. No injection or drainage. ENT: Nose without bleeding, purulent drainage. Throat without erythema, tonsillar hypertrophy or exudate. Airway patent. NECK: Trachea midline. Non tender CARDIOVASCULAR: Regular rate and rhythm without murmurs, gallops, or rubs. RESPIRATORY: Clear to auscultation. Breath sounds equal bilaterally. No wheezes, rales, or rhonchi. GASTROINTESTINAL: Abdomen soft, non-tender, nondistended. EXTREMITIES: No gross effusion, right knee with well-healed proximal midline upper tibia scar consistent with remote [place] Schlatter surgery reported, right medial knee joint line tenderness, no gross laxity medial or lateral, Marian's testing with good end point, no gross effusion. No posterior tenderness. No tenderness along lateral joint line right knee. No distal right extremity tenderness or deformities, no left lower extremity gross deformities, no upper extremity gross deformities. BACK: Nontender without deformity or crepitance. No flank tenderness. NEURO: AOx3. Motor function grossly normal SKIN: No rash or erythema of visible areas Initial Vital Signs Initial Vital Signs: Vital Signs Temperature 97.6 F 12/07/23 18:01 Pulse Rate 78 12/07/23 18:01 Respiratory Rate 16 12/07/23 18:01 Blood Pressure 143/97 H 12/07/23 18:01 Pulse Oximetry 99 12/07/23 18:01 Oxygen Delivery Method Room Air 12/07/23 18:01 Course Orders Ordered: ED Orders 12/07/23 17:42 XR knee RT 3V Stat Discontinued Medications Tramadol HCl (Tramadol 50 Mg Tablet) 50 mg PO NOW ONE Stop: 12/07/23 18:28 Last Admin: 12/07/23 18:39 Dose: 50 mg Documented By: KIRILL Vital Signs Vital signs: Vital Signs - 8 hr 12/07/23 19:20 Pulse Rate 72 Respiratory Rate 16 Blood Pressure 130/82 Pulse Oximetry 99 Oxygen Delivery Method Room Air MDM - Extremity (Nontraumatic) Imaging Data Extremity x-ray #1: Radiologist's Impression: [address] [address] XRay Report Signed Patient: Erica Zhang MR#: [id number] : 1970 Acct:[id number] Age/Sex: 53 / F Date of Service: 12/07/23 Loc: ED Accession Number: [id number] Procedure: XR knee RT 3V Ordering Provider: Juan Umaña D.O. PROCEDURE: XR KNEE RT 3V INDICATIONS: pain w/o injury TECHNIQUE: 3 views of the knee were acquired. COMPARISON: None. FINDINGS: Bones: No fractures or dislocations. No suspicious bony lesions. Soft tissues: Small joint effusion. No suspicious soft tissue calcifications. IMPRESSION: No acute bony abnormality. Small joint effusion. Consider follow-up MRI. Dictated by: Luis Felipe Bassett M.D. on 12/07/2023 at 18:43 Approved by: Luis Felipe Bassett M.D. 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 Screening x-ray right knee ordered from triage showed no bony injury, small effusion noted. Copy of the report given to patient. She had neoprene sleeve that she was not tolerating. Knee immobilizer placed, crutches nonweightbearing until follow up with local orthopedic surgeon. Symptoms and exam concerning for internal derangement, possible left medial meniscus and/or lateral collateral injury. Nonweightbearing with crutches and knee immobilizer for now. Contact information for on-call orthopedic surgery given. Oral tramadol dose, she has been taking NSAID doses. Follow up with Orthopedic surgery, call office early next week. Return precautions discussed [employer] claim form #[id number] filled out Discharge Plan Departure Patient Disposition: Home Clinical Impression: Acute pain of right knee Activity Restrictions/Additional Instructions: Right-sided knee pain after getting up from chair 2 days ago with popping sound sensation. Medial joint line tenderness on examination, but no gross laxity. Screening x-ray ordered from triage showed no bony injury, small effusion noted within the joint. Suspicious for ligamentous injury by history and findings. Follow up with Orthopedic surgery, sometimes MRI further diagnostic studies are required, or arthroscopy to look inside the joint. Contact information provided for orthopedic surgery. Take Tylenol as needed for pain control, anti-inflammatories as needed for pain control. Prescription for tramadol additional pain control medication sent to your pharmacy. Use knee immobilizer on the right knee, nonweightbearing with crutches until orthopedic surgery follow up. Return earlier to this/nearest emergency department for any change worsening symptoms or any concerns prior Prescriptions: New tramadol 50 mg tablet 50 mg PO TID PRN (Reason: pain) Qty: 14 0RF No Action fluoxetine 40 mg capsule 40 mg PO DAILY Patient Comments: take 1 capsule by mouth once daily omeprazole 40 mg capsule,delayed release(DR/EC) 1 mg PO DAILY Patient Comments: take 1 capsule by mouth EVERY MORNING BEFORE BREAKFAST take 1 cap... (REFER TO PRESCRIPTION NOTES). pramipexole 0.5 mg tablet 1 mg PO DAILY Patient Comments: Take 1 tablet by mouth nightly. hydrochlorothiazide 25 mg tablet 25 mg PO DAILY Patient Comments: take 1 tablet by mouth once daily dexamethasone 4 mg tablet 4 mg PO BID Qty: 6 0RF hydrocodone-acetaminophen 5-325 mg tablet 1 tab PO Q8H PRN (Reason: pain) Qty: 14 0RF potassium chloride 20 mEq tablet extended release 20 meq PO DAILY Qty: 10 0RF Referrals: Sumit Sharp MD [Physician] - Marixa Flood ARNP [Primary Care Provider] - Stand Alone Forms: Patient Portal/API, Work Release Note
[2023-12-07] MEDS: TRAMADOL 50 MG TABLET PO (18:39)
[2023-12-07 19:20] VITALS: BP 130/82; PULSE 72; RESP 16; O2SAT 99
== END 2023-12-07 19:30 | disposition home or self-care (01) ==
PROVIDERS: Emergency Provider Emergency Medicine; PCP Nurse Practitioner Family
DX: M25.561 Pain in right knee (principal)
CPT/HCPCS: 73562; 99283; 99284

== ENCOUNTER → 2024-05-15 18:52 | Outpatient (CLI) | payer OTHER, SELFPAY ==
--- NOTE | 2024-05-15 19:07 | DI.MRI.S_ITS ---
PROCEDURE: MR KNEE RT WO CON INDICATIONS: R/O MENISCUS TEAR TECHNIQUE: Noncontrast sagittal PD fast spin echo and T2 fast spin echo with fat saturation, sagittal 3-D FLASH with fat saturation; coronal T1 spin echo and PD fast spin echo with fat saturation, and axial PD fast spin echo with fat saturation through the knee. COMPARISON: None. FINDINGS: Image quality: Excellent. Menisci: Horizontal oblique tear involving body and posterior horn of medial meniscus extending to both and inferior articulating surfaces. No evidence of lateral meniscal tear. Peripheral displacement of medial meniscus bowing medial collateral ligament is seen. Cruciate ligaments: The anterior cruciate ligament is thickened . The posterior cruciate ligament is intact. Medial structures: The medial collateral ligament appears mildly thickened with surrounding soft tissue edema. Visualized portions of the pes anserinus tendons appear normal. No abnormal bursal fluid. Lateral structures: The lateral collateral ligament, long and short heads of the biceps femoris tendon appear intact. The popliteus tendon appears normal. Iliotibial band appears normal. Anterior structures: The quadriceps and patellar tendons appear intact. Patellar alignment is normal. Bones and cartilage: No bone marrow contusions or fractures. 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 Low-grade chondromalacia in medial femoral tibial compartment is also seen. Joint space: There is small to moderate knee joint fluid. There is a small popliteal cyst measures 1.9 x 2.5 x 4 cm in size. Normal appearing synovial plicae are incidentally noted. IMPRESSION: 1. Horizontal oblique tear involving body and posterior horn of medial meniscus extending to both superior and inferior articulating surfaces. No lateral meniscal tear. 2. Low-grade ACL sprain. No ACL rupture. The PCL is intact. 3. Low-grade MCL sprain/partial-thickness tear. 4. Low-grade chondromalacia in medial femoral tibial compartment. 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 No fracture or dislocation. 5. Small to moderate joint effusion and a small popliteal cyst as above. No loose bodies. Dictated by: Nilton Romo M.D. on 05/16/2024 at 8:34 Approved by: Nilton Romo M.D. on 05/16/2024 at 8:41
== END ==
LOC: MRI 18:53
PROVIDERS: PCP Nurse Practitioner Family; Referring Provider Physician Assistant; Visit Provider Physician Assistant
DX: S83.241A Other tear of medial meniscus, current injury, right knee, initial encounter; S83.511A Sprain of anterior cruciate ligament of right knee, initial encounter; S83.411A Sprain of medial collateral ligament of right knee, initial encounter; M22.41 Chondromalacia patellae, right knee; M71.21 Synovial cyst of popliteal space [Baker], right knee; M25.461 Effusion, right knee
CPT/HCPCS: 73721

== ENCOUNTER → 2024-05-27 10:20 | Outpatient (CLI) | payer OTHER, SELFPAY ==
[2024-05-27 11:01] LABS: BUN Creatinine Ratio 34.8 (6-22); Blood Urea Nitrogen 24 mg/dL (7-17); Calcium 9.6 mg/dL (8.4-10.2); Carbon Dioxide 25 mmol/L (22-32); Chloride 104 mmol/L (98-107); Estimated Glomerular Filt Rate > 60 mL/min (>60); Glucose 96 mg/dL (70-100); HEMOLYSIS < 15 (0-50); Potassium 4.1 mmol/L (3.4-5.1); Sodium 139 mmol/L (137-145)
== END ==
LOC: LAB 10:22
PROVIDERS: PCP Nurse Practitioner Family; Referring Provider Nurse Practitioner Family; Visit Provider Nurse Practitioner Family
DX: E87.6 Hypokalemia (principal)
CPT/HCPCS: 36415; 80048